=== PATIENT | female | born 1975 | race Caucasian/White ===

== ENCOUNTER 2018-10-30 11:47 | Emergency (ER) | payer OTHER, SELFPAY ==
[2018-10-30 11:48] VITALS: BP 126/68; PULSE 134; RESP 18; TEMP 36.6; O2SAT 98; BMI 31.6
--- NOTE | 2018-10-30 12:13 | ED.VISSUMM ---
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 she usually takes calcium supplementations daily she was told by her physician she could stop doing that she is following up with a new physician outpatient labs were drawn revealed the above and she was sent to the emergency department, she has no complaints of any kind no fever cough paresthesias doing well she is not known to have low vitamin D she is eating and drinking well otherwise is healthy History of Present Illness: The patient is a 43 F [] 126/68 General, no distress resting comfortably HEENT is generally unremarkable The neck is supple no adenopathy Cardiovascular, regular rate and rhythm Lungs, clear bilateral Abdomen, soft nontender Extremities, no clubbing cyanosis or edema Neurologic, awake alert answering questions appropriately moving all 4 extremities Had a long conversation with the patient we reviewed her labs her other lab studies were generally unremarkable see those reports on the chart her calcium was reported to be 7.2 spoke with pharmacy, she was treated with 1 g of calcium gluconate, I recommend that she restart her oral calcium supplementation we did draw a vitamin D level and her physicians will check that but as a prudent precautions until that level comes back, it was recommended she take a multivitamin with vitamin D as well as the calcium supplementation and have her levels repeated to return for change in symptoms she is very comfortable with this plan Physical Examination: [] Test Results: [] Emergency Department Course and Treatment: [] Treatment Plan: [] Disposition: [] Home stable Impression: [] Hypocalcemia with IV supplementation, history of same related to hypo-parathyroidism This note was generated with [employer] dictation software. It may contain incorrect words, spelling, and punctuation that were not noted in review of the chart prior to signing ED Disposition - Plan for ED Patient: Chief Complaint: Abn Labs Referrals: Kimani Arroyo MD [Primary Care Provider] -
--- NOTE | 2018-10-30 12:15 | ED.DEP ---
ED Disposition - Plan for ED Patient: Chief Complaint: Abn Labs Instructions: ED Hypocalcemia, Discharge Instructions for Hypocalcemia Referrals: Kimani Arroyo MD [Primary Care Provider] - Additional Instructions: Follow-up with all of her outpatient providers, start again taking her calcium supplements, consider taking a multivitamin with vitamin D, have your physicians check vitamin D level drawn today return for change in symptoms
--- NOTE | 2018-10-30 12:34 | ED.RN ---
pt placed on crdiac monitor. calcium hung and now infusing
[2018-10-30 12:35] VITALS: BP 107/82; PULSE 109; RESP 18; O2SAT 100
[2018-10-30 13:10] LABS: Vitamin D,25 Hydroxy 24.8 ng/mL (29.95-100.01)
[2018-10-30 14:10] VITALS: BP 110/70; BP 113/75; PULSE 110; PULSE 90; RESP 18; O2SAT 100; O2SAT 99
--- OUTSIDE RECORDS SUMMARY | 2018-12-16 16:14 | XMS RPT_ITS ---
:1975 Author Organization [place] Care Team Providers Name Role Phone CAIO ALMEIDA MD Attending Unavailable PHYSICIAN, NOT RECORDED Primary Care Unavailable CAIO ALMEIDA MD Attending Unavailable PHYSICIAN, NOT RECORDED Primary Care Unavailable REBECA BUSCH Referring Unavailable REBECA BUSCH Attending Unavailable LUIS ARROYO) Referring Unavailable LUIS ARROYO) Referring Unavailable REBECA BUSCH Attending Unavailable LUIS ARROYO) Referring Unavailable LUIS ARROYO) Referring Unavailable LUIS ARROYO) Attending Unavailable LUIS ARROYO) Referring Unavailable LUIS ARROYO) Attending Unavailable Gilberto Lainez Attending Unavailable Kimani Arroyo Primary Care Unavailable PROBLEMS PROBLEMS DATE TYPE CONDITION / CODE ATTENDING STATUS SOURCE 11/04/2018 Active Encounter for NA Active [place] [facility] Main mammogram for [place] malignant neoplasm Repository of breast / Z12.31(ICD-10) 10/29/2018 Active Pain in left foot NA Active [facility] / M79.672(ICD-10) Clinic Main [place] Repository 12/08/2013 Active Hypocalcemia / NA Active [facility] E83.51(ICD-10) Clinic Main [place] Repository 10/23/2018 Active Iron deficiency NA Active [place] anemia, Clinic Main unspecified / [place] D50.9(ICD-10) Repository 10/23/2018 Active Anemia, NA Active [place] unspecified / Clinic Main D64.9(ICD-10) [place] Repository 10/23/2018 Active Encounter for NA Active [place] general adult [facility] medical [place] examination Repository without abnormal findings / Z00.00(ICD-10) 01/31/2018 Active Generalized NA Active [place] anxiety disorder / Clinic Main F41.1(ICD-10) [place] Repository 01/31/2018 Active Insomnia, NA Active [place] unspecified / Clinic Main G47.00(ICD-10) [place] Repository 12/13/2017 Admitting Isabel and ELLE GILMAN, Active [facility] Diagnosis frequent [facility] menstruation with Repository irregular cycle / N92.1(ICD-10) PROCEDURES PROCEDURES No Procedure Records FoundRESULTS RESULTS PROGRESS Observed: 11/29/2018 Status: COMPLETED Source: [place] 9:45 AM [facility] REPOSITORY HNO ID: [id number] Author: Bernice Ledbetter Ma Service: (none) Author Type: (none) Type: Progress Notes Filed: 11/29/2018 9:46 AM Note Text: Per Dr. Busch, Jordana was provided with a night splint, size S, and instructed/educated in its application, wear, and care. All questions were answered, and patient was able to demonstrate competence with the necessary skills to utilize the above equipment. Kartik will bill insurance. Bernice Ledbetter Ma PROGRESS Observed: 11/29/2018 Status: COMPLETED Source: [place] 9:21 AM [facility] REPOSITORY HNO ID: [id number] Author: Rebeca Busch Service: (none) Author Type: Physician Type: Progress Notes Filed: 11/29/2018 9:36 AM Note Text: Follow up podiatric office visit for: Chief Complaint: This 43 year old who presents for follow up:left heel pain Patient continues with stretching as much as she can remember. She is using inserts but has not notice much improvement. Patient has not been taking any nsaids for the pain. Patient states the pain is mostly in the morning after rest or in evening after she has been sitting. She states the pain is not as bad during the day after she gets moving. She states the right ankle along the lateral aspect is starting to hurt and she does not know if this is due to compensation. Patient states the pain is 8/10. PAIN EVALUATION 11/29/2018 Pain Score: 8 Pain Location: Foot-Left Description: Sharp Duration Amount of Time: 7 Duration Units: Months Frequency: Intermittent Intervention: - stretches AND power stops No results found for: HBA1C PCP: Luis Arroyo MD PAST MEDICAL HISTORY Diagnosis Date - Anxiety - Breast pain 04/04/12 - Heel spur, left - hyperthyroidism s/p thryoidectomy - Hypothyroidism (acquired) - Insomnia, unspecified - Obesity (BMI 30-39.9) - Other abnormal glucose - Plantar fasciitis Current Outpatient Prescriptions: levothyroxine (LEVOXYL) 125 mcg tablet Take 1 tablet by mouth once daily. COMPOUNDED PRESCRIPTION B/l gel heel splintsDx: 1. Heel pain No current facility-administered medications for this visit. ALLERGIES No Known Allergies PAST SURGICAL HISTORY Procedure Laterality Date - BX BREAST PERC NEED W/GUID 04/12/12 Right 6 oclock. 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 - PAST SURGICAL HISTORY OF 2004 Ankle Surgery - PAST SURGICAL HISTORY OF 2016 endometrial biopsy-normal - THYROIDECTOMY 2008 [facility] Physical Exam: Constitutional: Pt is a well developed 43 year old female who is alert, oriented, cooperative and in no apparent distress. OBJECTIVE: NVSI unchanged from previous visit. Dermatological: Nails 1-5 b/l are normal. Webspaces clean and dry 1-4 b/l. Skin appears well hydrated and supple. good color, texture, turgor. No open lesions present. No callosities present. Musculoskeletal/Orthopaedic: Patient has pain to palpation of left medial calcaneal tubercle - tinel to left foot Plantarflexion, dorsiflexion, inversion and eversion is 5/5 Mild pain is present to right lateral ankle. Pain is not too severe. ASSESSMENT: (M72.2) Plantar fasciitis of left foot (primary encounter diagnosis) PLAN: 1. History and physical examination completed today. 2. Discussed ongoing left heel pain. She is doing stretching, inserts. She still has pain. Recommend she increase her amount of stretching/day. 3. Will dispense night splint for her to wear at night 4. Discussed physical therapy today. She declined this. 5. Discussed steroid injection. She elected to receive. Patient elected to proceed with an injection to the heel today. The risks, benefits, potential complications, personnel present, and alternatives to this were discsussed. Pt elected to proceed. all questions were answered. no guarantees were given. A timeout was performed. patient properly identified. procedure site marked. Under aseptic technique an injection was performed to the heel using a mixture of ? cc of 0.5 % Marcaine plain, ? of kenalog and ? cc of dexamethazone 6. Discussed right ankle pain. Suspect this is more related to possible compensation. She does have history of arthroscopic ankle debridement. Informed patient that this ankle pain is possible compensation but it could be due to recurrent ankle pain. If pain persists, can always discuss options for ankle. Patient thinks is due to compensation 7. F/u in 4 weeks Rebeca Busch DPM CNOV Observed: 11/29/2018 Status: COMPLETED Source: [place] 9:10 AM [facility] REPOSITORY Office Visit (PODIWS) JORDANA MEDINA ([id number]) 1975 F Date Time Provider Department 11/29/18 9:10 AM REBECA BUSCH During your visit today, we recorded the following information about you: Carie Soto RN 11/29/2018 9:36 AM Signed AMB ROOMING INTAKE FLOWSHEET DATA Risk Screening Do you have concerns about personal safety or safety in the home?: No Pain Pain Score: 8/10 Pain Location: Foot-Left Description: Sharp Duration Amount of Time: 7 Duration Units: Months Frequency: Intermittent Intervention: (stretches AND power stops) 1 month follow up for left plantar fasciitis. Doing stretches AND wears the power stops while at work. Does not feel that this has helped. Painful with weight bearing, described as a sharp pain. Carie Busch DPM 11/29/2018 9:36 AM Signed Follow up podiatric office visit for: Chief Complaint: This 43 year old who presents for follow up:left heel pain Patient continues with stretching as much as she can remember. She is using inserts but has not notice much improvement. Patient has not been taking any nsaids for the pain. Patient states the pain is mostly in the morning after rest or in evening after she has been sitting. She states the pain is not as bad during the day after she gets moving. She states the right ankle along the lateral aspect is starting to hurt and she does not know if this is due to compensation. Patient states the pain is 8/10. PAIN EVALUATION 11/29/2018 Pain Score: 8 Pain Location: Foot-Left Description: Sharp Duration Amount of Time: 7 Duration Units: Months Frequency: Intermittent Intervention: - stretches AND power stops No results found for: HBA1C PCP: Luis Arroyo MD PAST MEDICAL HISTORY Diagnosis Date - Anxiety - Breast pain 04/04/12 - Heel spur, left - hyperthyroidism s/p thryoidectomy - Hypothyroidism (acquired) - Insomnia, unspecified - Obesity (BMI 30-39.9) - Other abnormal glucose - Plantar fasciitis Current Outpatient Prescriptions: levothyroxine (LEVOXYL) 125 mcg tablet Take 1 tablet by mouth once daily. COMPOUNDED PRESCRIPTION B/l gel heel splintsDx: 1. Heel pain No current facility-administered medications for this visit. ALLERGIES No Known Allergies PAST SURGICAL HISTORY Procedure Laterality Date - BX BREAST PERC NEED W/GUID 04/12/12 Right 6 oclock. 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 - PAST SURGICAL HISTORY OF 2004 Ankle Surgery - PAST SURGICAL HISTORY OF 2016 endometrial biopsy-normal - THYROIDECTOMY 2008 [facility] Physical Exam: Constitutional: Pt is a well developed 43 year old female who is alert, oriented, cooperative and in no apparent distress. OBJECTIVE: NVSI unchanged from previous visit. Dermatological: Nails 1-5 b/l are normal. Webspaces clean and dry 1-4 b/l. Skin appears well hydrated and supple. good color, texture, turgor. No open lesions present. No callosities present. Musculoskeletal/Orthopaedic: Patient has pain to palpation of left medial calcaneal tubercle - tinel to left foot Plantarflexion, dorsiflexion, inversion and eversion is 5/5 Mild pain is present to right lateral ankle. Pain is not too severe. ASSESSMENT: (M72.2) Plantar fasciitis of left foot (primary encounter diagnosis) PLAN: 1. History and physical examination completed today. 2. Discussed ongoing left heel pain. She is doing stretching, inserts. She still has pain. Recommend she increase her amount of stretching/day. 3. Will dispense night splint for her to wear at night 4. Discussed physical therapy today. She declined this. 5. Discussed steroid injection. She elected to receive. Patient elected to proceed with an injection to the heel today. The risks, benefits, potential complications, personnel present, and alternatives to this were discsussed. Pt elected to proceed. all questions were answered. no guarantees were given. A timeout was performed. patient properly identified. procedure site marked. Under aseptic technique an injection was performed to the heel using a mixture of ? cc of 0.5 % Marcaine plain, ? of kenalog and ? cc of dexamethazone 6. Discussed right ankle pain. Suspect this is more related to possible compensation. She does have history of arthroscopic ankle debridement. Informed patient that this ankle pain is possible compensation but it could be due to recurrent ankle pain. If pain persists, can always discuss options for ankle. Patient thinks is due to compensation 7. F/u in 4 weeks TANYA Dutton DPM 11/29/2018 9:31 AM Signed STEROID INJECTION You have been injected with a corticosteroid and local anesthesia today. This should provide relief of symptoms for the next 8 hours or so. After this time frame you will likely experience an increase in pain symptoms again until the effects of the steroid start to work, which should occur within 24-48 hours. Approximately 2% of individuals may experience a post injection flare or severe worsening of symptoms following injection. If this occurs ice the area and take Tylenol or Aleve for pain. In some very rare instances skin depigmentation and joint infection may occur. Joint infection is a concern if you experience any of the following: ? pain for more than 48 hours after the injection ? pain develops more than 2 days after the injection ? the area becomes red, hot or swollen ? you develop a fever following the injection Corticosteroid injections can also rarely interfere with the healing process and weaken tendons, sometimes causing tendons to rupture. Repeated injections of steroids can also damage joint cartilage. For these reasons, there are limits to how many times and how frequently corticosteroid injections can be used in the same area. If anything seems unusual or out of the ordinary please contact our office as soon as possible for further instruction. Bernice Ledbetter Ma 11/29/2018 9:[address] Busch, Jordana was provided with a night splint, size S, and instructed/educated in its application, wear, and care. All questions were answered, and patient was able to demonstrate competence with the necessary skills to utilize the above equipment. Kartik will bill insurance. Bernice Ledbetter Ma Referring Provider: LUIS ARROYO) [[id number]] Allergies As of Date: 11/29/2018 (No Known Allergies) Date Reviewed: 11/29/2018 Reviewed by: Carie Soto RN - Fully Assessed Reason for Visit: Established Patient [175] Cmt: 1 month follow up left plantar fascitis Primary Visit Diagnosis:Plantar fasciitis of left foot [M72.2] Order(s):[] bupivacaine (PF) 0.5 % (5 mg/mL) 2.5 mg injectionDisp: Rfl: [] dexamethasone sodium phosphate 2 mg injection (DECADRON)Disp: Rfl: [] triamcinolone acetonide 5 mg injection (KENALOG 10)Disp: Rfl: Prescriptions as of 11/29/2018 Sig: LEVOTHYROXINE 125 MCG TABLET Take 1 tablet by mouth once d* COMPOUNDED PRESCRIPTION B/l gel heel splints Dx: 1.* Problem List As Of Date 11/29/2018 Noted Resolved ABNORMAL GLUCOSE NEC [R73.09] HYPOTHYROIDISM NOS [E03.9] INVALID FOR*03/04/2009 INSOMNIA NOS [G47.00] Postoperative Hypothyroidism [E89.0] INVALID FOR* PALPITATIONS [R00.2] INVALID FOR* GOITER UNSPECIFIED [E04.9] INVALID FOR* Hypopotassemia [E87.6] INVALID FOR* Abnormal mammogram, unspecified [R92.8] INVALID FOR* Elevated cholesterol [E78.00] INVALID FOR* Hypocalcemia [E83.51] INVALID FOR* Anxiety [F41.9] Other instructions from your clinician: STEROID INJECTION You have been injected with a corticosteroid and local anesthesia today. This should provide relief of symptoms for the next 8 hours or so. After this time frame you will likely experience an increase in pain symptoms again until the effects of the steroid start to work, which should occur within 24-48 hours. Approximately 2% of individuals may experience a post injection flare or severe worsening of symptoms following injection. If this occurs ice the area and take Tylenol or Aleve for pain. In some very rare instances skin depigmentation and joint infection may occur. Joint infection is a concern if you experience any of the following: ? pain for more than 48 hours after the injection ? pain develops more than 2 days after the injection ? the area becomes red, hot or swollen ? you develop a fever following the injection Corticosteroid injections can also rarely interfere with the healing process and weaken tendons, sometimes causing tendons to rupture. Repeated injections of steroids can also damage joint cartilage. For these reasons, there are limits to how many times and how frequently corticosteroid injections can be used in the same area. If anything seems unusual or out of the ordinary please contact our office as soon as possible for further instruction. Prescriptions ordered this encounter Disp Refills Start End BUPIVACAINE (PF) 0.5 % (5 MG/ML) INJ* 11/29/2018 11/29/2018 Route: IAtc DEXAMETHASONE 4 MG/ML INJECTION SOLU* 11/29/2018 11/29/2018 Route: IAtc TRIAMCINOLONE ACETONIDE 10 MG/ML TONA* 11/29/2018 11/29/2018 Route: IAtc Disposition: Return in about 4 weeks (around 12/27/2018) for Heel spur. Follow-up and Disposition History Recorded Encounter Status:Closed by REBECA BUSCH DPM on 11/29/18 PROGRESS Observed: 11/29/2018 Status: COMPLETED Source: [place] 9:06 AM [facility] REPOSITORY HNO ID: [id number] Author: Carie Soto RN Service: (none) Author Type: (none) Type: Progress Notes Filed: 11/29/2018 9:36 AM Note Text: AMB ROOMING INTAKE FLOWSHEET DATA Risk Screening Do you have concerns about personal safety or safety in the home?: No Pain Pain Score: 8/10 Pain Location: Foot-Left Description: Sharp Duration Amount of Time: 7 Duration Units: Months Frequency: Intermittent Intervention: (stretches AND power stops) 1 month follow up for left plantar fasciitis. Doing stretches AND wears the power stops while at work. Does not feel that this has helped. Painful with weight bearing, described as a sharp pain. Carie Soto RN CNCO Observed: 11/04/2018 Status: COMPLETED Source: [place] 5:00 PM [facility] REPOSITORY HNO ID: [id number] Author: Mammography Coordinator Service: (none) Author Type: Physician Type: Letter Filed: 11/05/2018 11:33 PM Note Text: November 04, 2018 PID: [id number] Jordana Medina [address] [place] [address] Dear Ms. Medina, We are pleased to inform you that the results of your recent breast imaging exam on 11/04/2018 are normal. Your mammogram demonstrates that you have dense breast tissue, which could hide abnormalities. Dense breast tissue, in and of itself, is a relatively common condition. Therefore, this information is not provided to cause undue concern; rather, it is to raise your awareness and promote discussion with your health care provider regarding the presence of dense breast tissue in addition to other risk factors. Early detection of cancer is very important. We also understand recommendations regarding breast cancer screening are controversial. Please discuss with your primary care provider which strategy is best for you and whether a mammogram is right for you. Your imaging studies and report will be kept on file at [facility] as part of your permanent medical record and are available for your continuing care. Thank you for allowing us to help in meeting your health care needs. Sincerely, Dr. Schwartz Interpreting Radiologist [facility] (Normal over 40) [facility] SCREENING Observed: 11/04/2018 Status: F Source: [place] 11:54 AM [facility] REPOSITORY * * *Final Report* * * DATE OF EXAM: Nov 04 2018 11:54AM [id number] - [facility] SCREENING / PROCEDURE REASON: Screening mammogram, encounter for * * * * Physician Interpretation * * * * RESULT: #[id number] - [facility] SCREENING BILATERAL DIGITAL SCREENING MAMMOGRAM WITH CAD: 11/04/2018 HISTORY: Screening Mammogram, Encounter For /SEE TECH NOTE /priors available for comparison. RESULT: TECHNIQUE: The study was acquired using full field digital technology and interpreted from soft copy. Current study was also evaluated with a Computer Aided Detection (CAD). Comparison is made to exams dated: 04/27/2015 mammogram and 09/19/2012 mammogram - [facility]. The tissue of both breasts is heterogeneously dense. This may lower the sensitivity of mammography. There is a stable benign mass in the right breast. There also are biopsy clips in the right breast. No significant masses, calcifications, or other findings are seen in either breast. There has been no significant interval change. IMPRESSION: BENIGN FINDING There is no mammographic evidence of malignancy. A 1 year screening mammogram is recommended. Ruth priest/juan a:11/04/2018 17:00:47 Farm Machine Operator(s): Clover Allen RT(R)(M), [facility] letter sent: Normal over 40 Mammogram BI-RADS: 2 Benign finding Multiple national specialty organizations have released breast cancer screening guidelines for women at average risk for developing breast cancer - guidelines that are based on both evidence and opinion, yet differ on when to start and how often to screen for breast cancer. With representation from Breast Imaging, Internal Medicine, Women's Health, Family Medicine, and Medical/Surgical Oncology, the [facility] has carefully reviewed the data and reached the following consensus: 1) All women should engage in shared decision-making with their providers to decide when to start and how often to screen; 2) All women should have the opportunity to start screening mammography at age 40; 3) For women ages 45-55, we recommend annual screening mammograms; 4) For women ages 55 and over, we support both the transition from an annual to a biennial interval if this aligns more with patient's values and preferences, or continuation with annual screening; 5) All women should discuss with their providers when to stop screening mammograms. Account Administrator: Juan A Transcribe Date/Time: Nov 04 2018 11:30A Dictated by: RUTH SCHWARTZ MD This examination was interpreted and the report reviewed and electronically signed by: RUTH SCHWARTZ MD on Nov 04 2018 5:00PM EST [id number] PROGRESS Observed: 11/04/2018 Status: COMPLETED Source: [place] 11:30 AM [facility] REPOSITORY HNO ID: [id number] Author: Zhanna Allen Rt Service: (none) Author Type: (none) Type: Progress Notes Filed: 11/04/2018 11:58 AM Note Text: Radiology Service Progress Note PATIENT NAME: Jordana Medina DATE OF SERVICE: November 04, 2018 TIME: 11:30 AM PATIENT IDENTITY VERIFICATION COMPLETED USING TWO (2) METHODS: Patient confirmed name verbally and Date of . PATIENT GENDER DATA: Female. status: : No status: NO. PATIENT RELEVANT IMPLANT DATA REVIEWED: Not Applicable RADIOLOGY DEPARTMENT: Women[facility] esmer scr mammogram PERIPHERAL IV DATA: Not applicable SIGNED BY: Zhanna Strong November 04, 2018 11:30 AM EMERGENCY DEPARTMENT Observed: 10/30/2018 Status: F Source: [place] SUMMARY 5:10 PM [facility] REPOSITORY [facility] Medical Records Department [address] [place] [address] Emergency Department Summary 10/30/18 1213 MR#: [id number] Acct: [id number] Name: JORDANA MEDINA Rep #: [id number] : 1975 43 From: Gilberto Lainez MD PCP: Kimani Arroyo MD Status: DEP ER 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 she usually takes calcium supplementations daily she was told by her physician she could stop doing that she is following up with a new physician outpatient labs were drawn revealed the above and she was sent to the emergency department, she has no complaints of any kind no fever cough paresthesias doing well she is not known to have low vitamin D she is eating and drinking well otherwise is healthy History of Present Illness: The patient is a 43 F [] 126/68 General, no distress resting comfortably HEENT is generally unremarkable The neck is supple no adenopathy Cardiovascular, regular rate and rhythm Lungs, clear bilateral Abdomen, soft nontender Extremities, no clubbing cyanosis or edema Neurologic, awake alert answering questions appropriately moving all 4 extremities Had a long conversation with the patient we reviewed her labs her other lab studies were generally unremarkable see those reports on the chart her calcium was reported to be 7.2 spoke with pharmacy, she was treated with 1 g of calcium gluconate, I recommend that she restart her oral calcium supplementation we did draw a vitamin D level and her physicians will check that but as a prudent precautions until that level comes back, it was recommended she take a multivitamin with vitamin D as well as the calcium supplementation and have her levels repeated to return for change in symptoms she is very comfortable with this plan Physical Examination: [] Test Results: [] Emergency Department Course and Treatment: [] Treatment Plan: [] Disposition: [] Home stable Impression: [] Hypocalcemia with IV supplementation, history of same related to hypo-parathyroidism This note was generated with i[employer] dictation software. It may contain incorrect words, spelling, and punctuation that were not noted in review of the chart prior to signing ED Disposition - Plan for ED Patient: Chief Complaint: Abn Labs Referrals: Kimani Arroyo MD [Primary Care Provider] - What to do if you have Problems For any increased pain, shortness of breath, bleeding, nausea or vomiting, chest pain, or any unexpected problems, contact your Primary Care Provider. Call [facility] ([phone]) or report to the closest Emergency Room. Call 911 if necessary. 10/30/18 1710 <Electronically signed by Gilberto Lainez MD> Date Gilberto Lainez MD Cosigner Signature (If Indicated): Date CC: Kimani Arroyo MD DISCHARGE INSTRUCTION Observed: 10/30/2018 Status: F Source: [place] 12:16 PM [facility] REPOSITORY [facility] Medical Records Department [address] [place] [address] Discharge Instruction 10/30/18 1215 MR#: [id number] Acct: [id number] Name: JORDANA MEDINA Rep #: [id number] : 1975 43 From: Gilberto Lainez MD PCP: Kimani Arroyo MD Status: PRE ER ED Disposition - Plan for ED Patient: Chief Complaint: Abn Labs Instructions: ED Hypocalcemia, Discharge Instructions for Hypocalcemia Referrals: Kimani Arroyo MD [Primary Care Provider] - Additional Instructions: Follow-up with all of her outpatient providers, start again taking her calcium supplements, consider taking a multivitamin with vitamin D, have your physicians check vitamin D level drawn today return for change in symptoms What to do if you have Problems For any increased pain, shortness of breath, bleeding, nausea or vomiting, chest pain, or any unexpected problems, contact your Primary Care Provider. Call [facility] ([phone]) or report to the closest Emergency Room. Call 911 if necessary. 10/30/18 1216 <Electronically signed by Gilberto Lainez MD> Date Gilberto Lainez MD Cosigner Signature (If Indicated): Date CC: No Primary Care Physician; Kimani Arroyo MD VITAMIN D,25 HYDROXY Collected: 10/30/2018 Status: F Source: [place] 12:05 PM [facility] REPOSITORY TYPE CODE TESTS RESULT OUT OF REFERENCE UNITS RANGE LAB L506.1000 29.95-100.01 ng/mL Low Vitamin D 24.8 25-OH Result Comment: Vitamin D 25(OH) Status Range Deficiency <20 ng/mL (50nmol/L) Insuffciency 20 - 30 ng/mL (50 - 75 nmol/L) Sufficiency 30 - 100 ng/mL (75 - 250 nmol/L) Toxicity >100 ng/mL (>250 nmol/L) Performed By: #### L506.1000 #### [facility] [address] [place], [address] CNPN Observed: 10/30/2018 Status: COMPLETED Source: [place] 12:00 AM [facility] REPOSITORY Telephone (FAMPWS) JORDANA [id number]) 1975 F Date Time Provider Department 10/30/18 LUIS ARROYO) FAMWS During your visit today, we recorded the following information about you: Braulio Wickjass Jorgensen 10/30/2018 10:52 AM Signed ----- Message from Luis Sumner) Cruz sent at 10/30/2018 10:50 AM EST ----- Labs confirm hypoparathryoidism with low PTH, low calcium, low vitamin D, low ionized calcium and elevated phosphorus level. Calcium level corrected for albumin is 6.5 which is severely low. Findings likely caused by previous thyroid surgery. Recommend she be seen in the ED today as she will need calcium supplementation and close follow up with endocrinology as she can have symptoms of seizures, heart failure, and laryngospasm with calcium levels this low. Haley Covarrubias LPN, FRAME TENDER 10/30/2018 10:55 AM Signed Sent message via my chart. Braulio Fisher Ma 10/30/2018 11:18 AM Signed TC to patient - notified and verbalized understanding. Patient will be going to [facility] ED. Records faxed. Braulio Fisher Ma Allergies As of Date: 10/30/2018 (No Known Allergies) Date Reviewed: 10/29/2018 Reviewed by: Susan Atwood LPN - Fully Assessed Reason for Visit: Results [95] Prescriptions as of 10/30/2018 Sig: COMPOUNDED PRESCRIPTION B/l gel heel splints Dx: 1.* LEVOTHYROXINE 125 MCG TABLET Take 1 tablet by mouth once d* SUVOREXANT 10 MG TABLET Take 1 tablet by mouth daily * Problem List As Of Date 10/30/2018 Noted Resolved ABNORMAL GLUCOSE NEC [R73.09] HYPOTHYROIDISM NOS [E03.9] INVALID FOR*03/04/2009 INSOMNIA NOS [G47.00] Postoperative Hypothyroidism [E89.0] INVALID FOR* PALPITATIONS [R00.2] INVALID FOR* GOITER UNSPECIFIED [E04.9] INVALID FOR* Hypopotassemia [E87.6] INVALID FOR* Abnormal mammogram, unspecified [R92.8] INVALID FOR* Elevated cholesterol [E78.00] INVALID FOR* Hypocalcemia [E83.51] INVALID FOR* Anxiety [F41.9] Encounter Status:Closed by HALEY COVARRUBIAS LPN on 10/30/18 PROGRESS Observed: 10/29/2018 Status: COMPLETED Source: [place] 3:17 PM [facility] REPOSITORY HNO ID: [id number] Author: Candida Santos RN Service: (none) Author Type: (none) Type: Progress Notes Filed: 10/29/2018 3:24 PM Note Text: Per Jordana Barrett provided with a pair of Powerstep Original Full Length Inserts, size 8 -8 1/2, and instructed/educated in its application, wear, and care. All questions were answered, and patient was able to demonstrate competence with the necessary skills to utilize the above equipment. Candida Santos RN CNOV Observed: 10/29/2018 Status: COMPLETED Source: [place] 3:10 PM [facility] REPOSITORY Office Visit (PODIWS) JORDANA MEDINA ([id number]) 1975 F Date Time Provider Department 10/29/18 3:10 PM REBECA BUSCH During your visit today, we recorded the following information about you: Rebeca Busch DPM 10/29/2018 3:24 PM Signed Consultation requested by Dr. Arroyo for an opinion regarding left heel pain. My final recommendations will be communicated back to the requesting physician by way of shared Medical record or letter to requesting physician via US mail. Initial Podiatric Office Visit: Chief Complaint: This 43 year old female who presents with chief complaint:left heel pain HPI Patient presents to clinic for evaluation of left heel pain Patient complains of pain to the plantar aspect of left heel for duration of 9 months She states the pain is mostly following periods of rest. She states the pain is not as bad while walking but she has had a chance to sit down for awhile and then Gets up to walk, she has pain. She states the pain is 6/10. Patient has tried icing and inserts. Patient states the icing and inserts do help. PAIN EVALUATION 10/29/2018 Pain Score: 6 Pain Location: Heel-Left Description: Shooting;Sharp Duration Amount of Time: 9 Duration Units: Months Frequency: Continuous No results found for: HBA1C PCP: Luis Arroyo MD PAST MEDICAL HISTORY Diagnosis Date - Anxiety - Breast pain 04/04/12 - Heel spur, left - hyperthyroidism s/p thryoidectomy - Hypothyroidism (acquired) - Insomnia, unspecified - Obesity (BMI 30-39.9) - Other abnormal glucose Current Outpatient Prescriptions: COMPOUNDED PRESCRIPTION B/l gel heel splintsDx: 1. Heel pain levothyroxine (LEVOXYL) 125 mcg tablet Take 1 tablet by mouth once daily. ramelteon (ROZEREM) 8 mg tablet Take 1 tablet by mouth daily at bedtime. No current facility-administered medications for this visit. ALLERGIES No Known Allergies PAST SURGICAL HISTORY Procedure Laterality Date - BX BREAST PERC NEED W/GUID 04/12/12 Right 6 oclock. 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 - PAST SURGICAL HISTORY OF 2004 Ankle Surgery - PAST SURGICAL HISTORY OF 2016 endometrial biopsy-normal - THYROIDECTOMY 2008 [facility] FAMILY HISTORY Problem Relation Age of Onset - Diabetes Mother - Lipids Father - Diabetes Father - Carotid Disease Father - No Known Problems Sister - No Known Problems Maternal Grandmother - No Known Problems Maternal Grandfather - Heart Paternal Grandmother pacer - Alzheimer's Disease Paternal Grandmother - Colon Cancer Paternal Grandfather 70 - No Known Problems Son - No Known Problems Son - Heart Paternal Uncle 50 pacer - Breast Cancer Paternal Aunt 30 30-40 Social History Marital status: Spouse name: suresh Years of education: Number of children: 2 Social History Main Topics Smoking status: Never Smoker Smokeless tobacco: Never Used Alcohol use: Yes 3.0 oz/week Glasses of Wine (5oz): 2 per week Comment: Social Drug use: No Sexual activity: Yes Partners with: Male control/protection: Vasectomy Social History Narrative , 2 boys 5,8 pigs feet cleaner Lives in [facility] REVIEW OF SYSTEMS GENERAL: Negative for Malaise, significant weight loss, fever RESPIRATORY: Negative for cough, wheezing and shortness of breath CARDIOVASCULAR: Negative for chest pain, leg swelling and palpitations GI: Negative for abdominal discomfort, blood in stools or black stools and change in bowel habits : Negative for dysuria, frequency and incontinence MUSCULOSKELETAL: Positive for left heel pain SKIN: Negative for lesions, rash, and itching. HEMATOLOGY/LYMPHOLOGY Negative for prolonged bleeding, bruising easily, and swollen nodes. ENDOCRINE: Negative for cold or heat intolerance, polyuria, polydipsia and goiter. NEURO: negative Physical Exam: Constitutional: Pt is a well developed 43 year old female who is alert, oriented and cooperative Eyes: Following during examination. No redness or drainage. Respiratory: RR normal and nonlabored. Even breathing. No evidence of distress or shortness of breath. Psychology: Patient is engaged during conversation. Normal affect and mood. Does not appear depressed or anxious during encounter. Vascular: Dorsalis pedis and posterior tibial pulses palpable as b/l Capillary Fill time < 5 seconds to digits 1-5 b/l Skin temperature warm to warm proximal to distal b/l Hair growth present to digits Neurological: intact light touch/epicritic sensation - tinel b/l intact protective sensation no significant neurological deficits Dermatological: Nails 1-5 b/l appear normal. Webspaces clean and dry 1-4 b/l. Skin appears well hydrated and supple. good color, texture, turgor. No open lesions present. No callosities present. Musculoskeletal/Orthopaedic: Patient has pain to palpation of left medial calcaneal tubercle Foot type is neutral structurally AJ ROM is decreased with knee extended and flexed 1st MPJ is full when loaded and no pain or crepitus are noted with ROM. MTJ, STJ are full and free of pain and crepitus. +5/5 muscle strength dorsiflexion, plantarflexion, inversion, eversion b/l Radiographs: 3 views left foot ordered October 29, 2018: I have personally reviewed and interpreted these XR myself: No acute fracture. There is plantar heel spur left foot ASSESSMENT: (M72.2) Plantar fasciitis of left foot (primary encounter diagnosis) PLAN: 1. Initial Office Visit - A thorough review of the patient's PMH and Podiatric physical exam was completed. 2. Patient advised to perform stretching excercises, icing, and to make appropriate shoe gear changes to include wearing athletic- type shoes with supportive insoles. No barefoot walking. Patient also given written instructions on how to correctly perform the stretching of the achilles tendon/calf stretches, and the heel spur/plantar fasciitis regimen. 3. Patient advised to seek wide, deep toe box, accomodative, comfortable, lace-up, athletic/walking type footwear that includes motion control characteristics for support and cushion that need to be worn at all times when weight-bearing. Shoes should be tested for torsional stability as well as proper bending at the toebox rather than at the midfoot. Good quality shoes such as, but not limited to, New Balance or Asics are examples of more proper foot gear. 4. Patient recommended to get powerstep insoles for proper support of the arch in order to alleviate the tension and stress on the plantar fascia associated with normal daily walking. Patient advised that these modalities used in conjunction with stretching and icing are able to alleviate most symptoms from this condition. 5. RTC in 6 weeks for f/u, discussed next step of custom FO, night splint or injection if symptoms do not markedly improve TANYA Dutton DPM 10/29/2018 3:12 PM Signed What is Plantar Fasciitis? Plantar fasciitis is the most common cause of heel pain. The pain is caused by inflammation of the plantar fascia. If you strain your plantar fascia, it becomes weak, swollen and irritated (inflamed). The resulting pain may be isolated in the heel or may appear at different points on the bottom of the foot, from time to time; it may occur in one foot or both. Some think that plantar fasciitis pain is caused by irritation of nerves from tissue swelling or inflammation, but it is debatable. Plantar fasciitis is common in middle-aged people; it also occurs in younger people who are on their feet a lot, such as athletes or soldiers. The plantar fascia is a strong band of connective tissue that extends from the base of the toes, along the bottom of the foot, to the bottom of the heel (calcaneous bone); it acts like a bowstring to maintain the arch of the foot. What are heel spurs? The inflammatory reaction of the heel bone may produce spike- like projections of new bone, called heel spurs. The spurs sometimes show on X-rays. They neither cause the initial pain nor do they cause the initial problem. However, later, having to walk on spurs may cause sharp pain. What causes plantar fasciitis? Plantar fasciitis is caused by straining the ligament that supports your arch. Repeated strain can cause tiny tears in the ligament. These lead to pain and swelling. During walking, the plantar fascia experiences tension up to twice the body weight with each step. While this is normal, those who spend much time on their feet, such as nurses, informal waiter/waitress/waiters, and mail carriers, often experience plantar fasciitis. Athletes involved in tennis or other racquet sports, race walking, jogging or running also show a higher incidence of plantar fasciitis than do those participating in other activities. Thus, it's clear that plantar fasciitis is predominantly an overuse injury. In fact, any activity that results in prolonged tension and stress on the plantar fascia may cause plantar fasciitis. It is possible that changes in footwear may play a role in causing plantar fasciitis, no matter what activity is occurring. Those who are overweight are prone to plantar fasciitis. This is true even for sedentary people who get little physical activity. Abnormalities of the foot and ankle joints may predispose some individuals to development of plantar fasciitis (specifically, over pronation of the subtalar joint). Contributing Factors * Flat feet * Toe running, hill running * Sudden weight increase * High-arched, rigid feet * Soft terrain, e.g. running on sand * Obesity * Pronated feet (rolled inward) * Sudden increase in activity * Family tendency * Poor shoe support * Worn out or poorly fitted shoes * Increasing age * Walking, standing or running for long periods of time, especially on hard surfaces. How is the Injury Treated? Rest Your Feet: Limit, or if possible, stop activities that are causing your heel pain. Try to avoid running or walking on hard surfaces, such as concrete. Use pain as your guide. If your foot is too painful, rest it. Ice: Ice the sore area for 30 to 60 minutes, several times a day, to reduce inflammation and relieve pain. Apply a plastic bag of crushed ice (or a bag of frozen peas) over a towel. Ice the sore area for 15 minutes after activity/exercise. Application of heat is not generally recommended, as heat expands the bone and connective tissue, perhaps exerting greater pressure on nerves and thereby increasing pain. If heat is used, follow it with ice. Medication: If your condition developed recently, anti-inflammatory/analgesic medication, combined with heel pads (see below) may be all that is necessary to relieve pain and to reduce inflammation. If no pain relief has occurred after 2-3 weeks, however, your doctor may inject either cortisone or local anesthetic directly into the tender area. Exercises: Do simple exercises, such as calf stretches and towel stretches (see below) several times a day, especially when you first get up in the morning. These can help your ligament become more flexible and strengthen the muscles that support your arch. Shoes: Poorly fitting shoes can cause plantar fasciitis. The best type of shoe to wear is a good walking or running shoe with good shock absorption and excellent arch support. You should choose the one that fits the best. [place] with your athletic shoes to find a pair that is comfortable and causes fewer symptoms. Put your shoes on as soon as you get out of bed; going barefoot or wearing slippers may make your pain worse. Good brands include (but are not limited to): New Balance, Asics, Saucony, SAS and Merrel?s. Taping: Your doctor may tape your foot to maintain the arch. This takes some of the tension off the plantar fascia. Weight Loss: If your weight is putting extra stress on your feet, your doctor may encourage you to try a weight-loss program. Orthotics: An orthotic insole is a molded piece of rubber, plastic, or other material that you insert into your shoe. It corrects the alignment of your foot and cushions your foot from excessive pounding. These may be prescription or non-prescription. Prescription orthotics are custom-fitted and may fit better and control pain better, but are very expensive. Night Splints: A night splint holds the foot with the toes pointed up and the ankle at a 90-degree angle. This position applies a constant, gentle stretch to the plantar fascia. Corticosteroid Shots: Steroids may be injected into the tender area to reduce inflammation. REHAB Exercises to stretch the plantar fascia, the calf muscles, and the Achilles tendon. Tightness of the muscles of the calves may contribute to plantar fasciitis, so stretching the calf muscles is important to rehabilitation, as is stretching of the plantar fascia itself. Plantar fascial stretches Assisted Dorsiflexion/Plantar Fascia Stretch: Sit on the floor or ground, barefoot, with both legs outstretched. Use a towel or elastic band and wrap it around the ball (and not the toes) of the affected foot. Use the towel or elastic band to provide resistance to upward movement of the forefoot. Pull foot upward (toward your body) with the help of the elastic band or towel, and then return to the starting position. Ten repetitions are recommended. Perform the sequence at least three times a day. Alternate Plantar Fascia Stretch: Sit upright in a chair, barefoot. Place the ankle of the affected foot on your opposite knee. Using the same hand as the affected foot, reach across and grab the toes. Flex the ankle toward and pull the toes toward the [place] cast[place]. To test the stretch, place the thumb of your hand on the bottom of the foot. You should be able to feel the cord- like plantar fascia, running the length of the foot. Hold the stretch for a count of 10, then relax. Repeat 10 times. Do the sequence at least three times a day. Achilles/Calf Stretches Strengthening the muscles of the calves may contribute to successful rehabilitation of plantar fasciitis, as well as prevent reoccurrence. The exercises below will help strengthen the calf muscles. Calf and Achilles Tendon Stretch (Gastrocnemius Stretch): Face a wall, standing an arm's length away. Place one foot back. Place both hands on the wall. Bend the elbows and knee of your forward leg, keeping the heel of the backward foot on the floor and keeping your body straight (aligned), until your forehead nearly touches the wall, or until significant stretch is felt in the muscles of the calf of the backward leg. Hold this position for 10 to 15 seconds. Extend elbows (straighten your arms and stand upright again) and maintain this position for 10 seconds. Repeat this cycle 15 to 20 times. Switch legs and repeat the exercise. Candida Santos RN 10/29/2018 3:24 PM Signed Per Jordana Barrett provided with a pair of Powerstep Original Full Length Inserts, size 8 -8 1/2, and instructed/educated in its application, wear, and care. All questions were answered, and patient was able to demonstrate competence with the necessary skills to utilize the above equipment. Candida Santos RN Referring Provider: LUIS ARROYO) [[id number]] Allergies As of Date: 10/29/2018 (No Known Allergies) Date Reviewed: 10/29/2018 Reviewed by: Susan Atwood LPN - Fully Assessed Reason for Visit: New Patient [172] Cmt: left heel spur Primary Visit Diagnosis:Plantar fasciitis of left foot [M72.2] Prescriptions as of 10/29/2018 Sig: COMPOUNDED PRESCRIPTION B/l gel heel splints Dx: 1.* LEVOTHYROXINE 125 MCG TABLET Take 1 tablet by mouth once d* RAMELTEON 8 MG TABLET Take 1 tablet by mouth daily * Problem List As Of Date 10/29/2018 Noted Resolved ABNORMAL GLUCOSE NEC [R73.09] HYPOTHYROIDISM NOS [E03.9] INVALID FOR*03/04/2009 INSOMNIA NOS [G47.00] Postoperative Hypothyroidism [E89.0] INVALID FOR* PALPITATIONS [R00.2] INVALID FOR* GOITER UNSPECIFIED [E04.9] INVALID FOR* Hypopotassemia [E87.6] INVALID FOR* Abnormal mammogram, unspecified [R92.8] INVALID FOR* Elevated cholesterol [E78.00] INVALID FOR* Hypocalcemia [E83.51] INVALID FOR* Anxiety [F41.9] Other instructions from your clinician: What is Plantar Fasciitis? Plantar fasciitis is the most common cause of heel pain. The pain is caused by inflammation of the plantar fascia. If you strain your plantar fascia, it becomes weak, swollen and irritated (inflamed). The resulting pain may be isolated in the heel or may appear at different points on the bottom of the foot, from time to time; it may occur in one foot or both. Some think that plantar fasciitis pain is caused by irritation of nerves from tissue swelling or inflammation, but it is debatable. Plantar fasciitis is common in middle-aged people; it also occurs in younger people who are on their feet a lot, such as athletes or soldiers. The plantar fascia is a strong band of connective tissue that extends from the base of the toes, along the bottom of the foot, to the bottom of the heel (calcaneous bone); it acts like a bowstring to maintain the arch of the foot. What are heel spurs? The inflammatory reaction of the heel bone may produce spike-like projections of new bone, called heel spurs. The spurs sometimes show on X-rays. They neither cause the initial pain nor do they cause the initial problem. However, later, having to walk on spurs may cause sharp pain. What causes plantar fasciitis? Plantar fasciitis is caused by straining the ligament that supports your arch. Repeated strain can cause tiny tears in the ligament. These lead to pain and swelling. During walking, the plantar fascia experiences tension up to twice the body weight with each step. While this is normal, those who spend much time on their feet, such as nurses, informal waiter/waitress/waiters, and mail carriers, often experience plantar fasciitis. Athletes involved in tennis or other racquet sports, race walking, jogging or running also show a higher incidence of plantar fasciitis than do those participating in other activities. Thus, it's clear that plantar fasciitis is predominantly an overuse injury. In fact, any activity that results in prolonged tension and stress on the plantar fascia may cause plantar fasciitis. It is possible that changes in footwear may play a role in causing plantar fasciitis, no matter what activity is occurring. Those who are overweight are prone to plantar fasciitis. This is true even for sedentary people who get little physical activity. Abnormalities of the foot and ankle joints may predispose some individuals to development of plantar fasciitis (specifically, over pronation of the subtalar joint). Contributing Factors * Flat feet * Toe running, hill running * Sudden weight increase * High-arched, rigid feet * Soft terrain, e.g. running on sand * Obesity * Pronated feet (rolled inward) * Sudden increase in activity * Family tendency * Poor shoe support * Worn out or poorly fitted shoes * Increasing age * Walking, standing or running for long periods of time, especially on hard surfaces. How is the Injury Treated? Rest Your Feet: Limit, or if possible, stop activities that are causing your heel pain. Try to avoid running or walking on hard surfaces, such as concrete. Use pain as your guide. If your foot is too painful, rest it. Ice: Ice the sore area for 30 to 60 minutes, several times a day, to reduce inflammation and relieve pain. Apply a plastic bag of crushed ice (or a bag of frozen peas) over a towel. Ice the sore area for 15 minutes after activity/exercise. Application of heat is not generally recommended, as heat expands the bone and connective tissue, perhaps exerting greater pressure on nerves and thereby increasing pain. If heat is used, follow it with ice. Medication: If your condition developed recently, anti-inflammatory/analgesic medication, combined with heel pads (see below) may be all that is necessary to relieve pain and to reduce inflammation. If no pain relief has occurred after 2-3 weeks, however, your doctor may inject either cortisone or local anesthetic directly into the tender area. Exercises: Do simple exercises, such as calf stretches and towel stretches (see below) several times a day, especially when you first get up in the morning. These can help your ligament become more flexible and strengthen the muscles that support your arch. Shoes: Poorly fitting shoes can cause plantar fasciitis. The best type of shoe to wear is a good walking or running shoe with good shock absorption and excellent arch support. You should choose the one that fits the best. [place] with your athletic shoes to find a pair that is comfortable and causes fewer symptoms. Put your shoes on as soon as you get out of bed; going barefoot or wearing slippers may make your pain worse. Good brands include (but are not limited to): New Balance, Asics, Saucony, SAS and Merrel?s. Taping: Your doctor may tape your foot to maintain the arch. This takes some of the tension off the plantar fascia. Weight Loss: If your weight is putting extra stress on your feet, your doctor may encourage you to try a weight-loss program. Orthotics: An orthotic insole is a molded piece of rubber, plastic, or other material that you insert into your shoe. It corrects the alignment of your foot and cushions your foot from excessive pounding. These may be prescription or non-prescription. Prescription orthotics are custom-fitted and may fit better and control pain better, but are very expensive. Night Splints: A night splint holds the foot with the toes pointed up and the ankle at a 90-degree angle. This position applies a constant, gentle stretch to the plantar fascia. Corticosteroid Shots: Steroids may be injected into the tender area to reduce inflammation. REHAB Exercises to stretch the plantar fascia, the calf muscles, and the Achilles tendon. Tightness of the muscles of the calves may contribute to plantar fasciitis, so stretching the calf muscles is important to rehabilitation, as is stretching of the plantar fascia itself. Plantar fascial stretches Assisted Dorsiflexion/Plantar Fascia Stretch: Sit on the floor or ground, barefoot, with both legs outstretched. Use a towel or elastic band and wrap it around the ball (and not the toes) of the affected foot. Use the towel or elastic band to provide resistance to upward movement of the forefoot. Pull foot upward (toward your body) with the help of the elastic band or towel, and then return to the starting position. Ten repetitions are recommended. Perform the sequence at least three times a day. Alternate Plantar Fascia Stretch: Sit upright in a chair, barefoot. Place the ankle of the affected foot on your opposite knee. Using the same hand as the affected foot, reach across and grab the toes. Flex the ankle toward and pull the toes toward the [place] cast[place]. To test the stretch, place the thumb of your hand on the bottom of the foot. You should be able to feel the cord-like plantar fascia, running the length of the foot. Hold the stretch for a count of 10, then relax. Repeat 10 times. Do the sequence at least three times a day. Achilles/Calf Stretches Strengthening the muscles of the calves may contribute to successful rehabilitation of plantar fasciitis, as well as prevent reoccurrence. The exercises below will help strengthen the calf muscles. Calf and Achilles Tendon Stretch (Gastrocnemius Stretch): Face a wall, standing an arm's length away. Place one foot back. Place both hands on the wall. Bend the elbows and knee of your forward leg, keeping the heel of the backward foot on the floor and keeping your body straight (aligned), until your forehead nearly touches the wall, or until significant stretch is felt in the muscles of the calf of the backward leg. Hold this position for 10 to 15 seconds. Extend elbows (straighten your arms and stand upright again) and maintain this position for 10 seconds. Repeat this cycle 15 to 20 times. Switch legs and repeat the exercise. Disposition: Return in about 1 month (around 11/29/2018) for plantar fasciitis. Follow-up and Disposition History Recorded Encounter Status:Closed by REBECA BUSCH DPM on 10/29/18 PROGRESS Observed: 10/29/2018 Status: COMPLETED Source: [place] 3:04 PM [facility] REPOSITORY O ID: [id number] Author: Rebeca Busch Service: (none) Author Type: Physician Type: Progress Notes Filed: 10/29/2018 3:24 PM Note Text: Consultation requested by Dr. Arroyo for an opinion regarding left heel pain. My final recommendations will be communicated back to the requesting physician by way of shared Medical record or letter to requesting physician via US mail. Initial Podiatric Office Visit: Chief Complaint: This 43 year old female who presents with chief complaint:left heel pain HPI Patient presents to clinic for evaluation of left heel pain Patient complains of pain to the plantar aspect of left heel for duration of 9 months She states the pain is mostly following periods of rest. She states the pain is not as bad while walking but she has had a chance to sit down for awhile and then Gets up to walk, she has pain. She states the pain is 6/10. Patient has tried icing and inserts. Patient states the icing and inserts do help. PAIN EVALUATION 10/29/2018 Pain Score: 6 Pain Location: Heel-Left Description: Shooting;Sharp Duration Amount of Time: 9 Duration Units: Months Frequency: Continuous No results found for: HBA1C PCP: Luis Arroyo MD PAST MEDICAL HISTORY Diagnosis Date - Anxiety - Breast pain 04/04/12 - Heel spur, left - hyperthyroidism s/p thryoidectomy - Hypothyroidism (acquired) - Insomnia, unspecified - Obesity (BMI 30-39.9) - Other abnormal glucose Current Outpatient Prescriptions: COMPOUNDED PRESCRIPTION B/l gel heel splintsDx: 1. Heel pain levothyroxine (LEVOXYL) 125 mcg tablet Take 1 tablet by mouth once daily. ramelteon (ROZEREM) 8 mg tablet Take 1 tablet by mouth daily at bedtime. No current facility-administered medications for this visit. ALLERGIES No Known Allergies PAST SURGICAL HISTORY Procedure Laterality Date - BX BREAST PERC NEED W/GUID 04/12/12 Right 6 oclock. 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 - PAST SURGICAL HISTORY OF 2004 Ankle Surgery - PAST SURGICAL HISTORY OF 2016 endometrial biopsy-normal - THYROIDECTOMY 2008 [facility] FAMILY HISTORY Problem Relation Age of Onset - Diabetes Mother - Lipids Father - Diabetes Father - Carotid Disease Father - No Known Problems Sister - No Known Problems Maternal Grandmother - No Known Problems Maternal Grandfather - Heart Paternal Grandmother pacer - Alzheimer's Disease Paternal Grandmother - Colon Cancer Paternal Grandfather 70 - No Known Problems Son - No Known Problems Son - Heart Paternal Uncle 50 pacer - Breast Cancer Paternal Aunt 30 30-40 Social History Marital status: Spouse name: suresh Years of education: Number of children: 2 Social History Main Topics Smoking status: Never Smoker Smokeless tobacco: Never Used Alcohol use: Yes 3.0 oz/week Glasses of Wine (5oz): 2 per week Comment: Social Drug use: No Sexual activity: Yes Partners with: Male control/protection: Vasectomy Social History Narrative , 2 boys 5,8 pigs feet cleaner Lives in [facility] REVIEW OF SYSTEMS GENERAL: Negative for Malaise, significant weight loss, fever RESPIRATORY: Negative for cough, wheezing and shortness of breath CARDIOVASCULAR: Negative for chest pain, leg swelling and palpitations GI: Negative for abdominal discomfort, blood in stools or black stools and change in bowel habits : Negative for dysuria, frequency and incontinence MUSCULOSKELETAL: Positive for left heel pain SKIN: Negative for lesions, rash, and itching. HEMATOLOGY/LYMPHOLOGY Negative for prolonged bleeding, bruising easily, and swollen nodes. ENDOCRINE: Negative for cold or heat intolerance, polyuria, polydipsia and goiter. NEURO: negative Physical Exam: Constitutional: Pt is a well developed 43 year old female who is alert, oriented and cooperative Eyes: Following during examination. No redness or drainage. Respiratory: RR normal and nonlabored. Even breathing. No evidence of distress or shortness of breath. Psychology: Patient is engaged during conversation. Normal affect and mood. Does not appear depressed or anxious during encounter. Vascular: Dorsalis pedis and posterior tibial pulses palpable as b/l Capillary Fill time < 5 seconds to digits 1-5 b/l Skin temperature warm to warm proximal to distal b/l Hair growth present to digits Neurological: intact light touch/epicritic sensation - tinel b/l intact protective sensation no significant neurological deficits Dermatological: Nails 1-5 b/l appear normal. Webspaces clean and dry 1-4 b/l. Skin appears well hydrated and supple. good color, texture, turgor. No open lesions present. No callosities present. Musculoskeletal/Orthopaedic: Patient has pain to palpation of left medial calcaneal tubercle Foot type is neutral structurally AJ ROM is decreased with knee extended and flexed 1st MPJ is full when loaded and no pain or crepitus are noted with ROM. MTJ, STJ are full and free of pain and crepitus. +5/5 muscle strength dorsiflexion, plantarflexion, inversion, eversion b/l Radiographs: 3 views left foot ordered October 29, 2018: I have personally reviewed and interpreted these XR myself: No acute fracture. There is plantar heel spur left foot ASSESSMENT: (M72.2) Plantar fasciitis of left foot (primary encounter diagnosis) PLAN: 1. Initial Office Visit - A thorough review of the patient's PMH and Podiatric physical exam was completed. 2. Patient advised to perform stretching excercises, icing, and to make appropriate shoe gear changes to include wearing athletic- type shoes with supportive insoles. No barefoot walking. Patient also given written instructions on how to correctly perform the stretching of the achilles tendon/calf stretches, and the heel spur/plantar fasciitis regimen. 3. Patient advised to seek wide, deep toe box, accomodative, comfortable, lace-up, athletic/walking type footwear that includes motion control characteristics for support and cushion that need to be worn at all times when weight-bearing. Shoes should be tested for torsional stability as well as proper bending at the toebox rather than at the midfoot. Good quality shoes such as, but not limited to, New Balance or Asics are examples of more proper foot gear. 4. Patient recommended to get powerstep insoles for proper support of the arch in order to alleviate the tension and stress on the plantar fascia associated with normal daily walking. Patient advised that these modalities used in conjunction with stretching and icing are able to alleviate most symptoms from this condition. 5. RTC in 6 weeks for f/u, discussed next step of custom FO, night splint or injection if symptoms do not markedly improve Rebeca Busch DPM XR FOOT 3V AP/LAT/OBL Observed: 10/29/2018 Status: F Source: [facility] 2:41 PM [facility] REPOSITORY * * *Final Report* * * DATE OF EXAM: Oct 29 2018 2:41PM [id number] [id number] - XR FOOT 3V AP/LAT/OBL LT / PROCEDURE REASON: Left foot pain * * * * Physician Interpretation * * * * HISTORY: 43-YEAR-OLD FEMALE WITH Left foot pain . pt states pain plantar left heel for 9 months no inj TECHNIQUE: XR FOOT 3V AP/LAT/OBL LT Laterality: LEFT Number of different views (projections): 3 COMPARISON: None. RESULT: Calcaneal enthesophyte insertion Achilles tendon and plantar fascia. Bones and joints are otherwise normal in appearance. No erosions, no fracture no joint space narrowing IMPRESSION: CALCANEAL ENTHESOPHYTES. NO ACUTE BONY ABNORMALITY. Account Administrator: RAHEEL Transcribe Date/Time: Oct 30 2018 2:32P Dictated by : DELIA VILLAREAL MD This examination was interpreted and the report reviewed and electronically signed by: DELIA VILLAREAL MD on Oct 30 2018 2:33PM EST [id number] PROGRESS Observed: 10/29/2018 Status: COMPLETED Source: [place] 2:34 PM [facility] REPOSITORY HNO ID: [id number] Author: Tere Peguero (Rt) Gloria Jamison Service: (none) Author Type: Organ Builder Type: Progress Notes Filed: 10/29/2018 2:41 PM Note Text: Radiology Service Progress Note PATIENT NAME: Jordana Medina DATE OF SERVICE: October 29, 2018 TIME: 2:34 PM PATIENT IDENTITY VERIFICATION COMPLETED USING TWO (2) METHODS: Patient confirmed name verbally and Date of . PATIENT GENDER DATA: Female. status: : No status: NO. PATIENT RELEVANT IMPLANT DATA REVIEWED: Not Applicable RADIOLOGY DEPARTMENT: General X-ray: Exam(s) Completed: Lower Extremity X-Ray(s): Foot, Left: PERIPHERAL IV DATA: Not applicable SIGNED BY: RT Sindy October 29, 2018 2:34 PM CBC AND DIFFERENTIAL Collected: 10/23/2018 Status: F Source: [place] 11:21 AM [facility] REPOSITORY TYPE CODE TESTS RESULT OUT OF REFERENCE UNITS RANGE LAB WBC 3.70-11.00 k/uL WBC 9.74 LAB RBC 3.90-5.20 m/uL RBC 4.24 LAB HGB 11.5-15.5 g/dL Low Hemoglobin 11.3 LAB HCT 36.0-46.0 % Hematocrit 36.6 LAB MCV 80.0-100.0 fL MCV 86.3 LAB MCH 26.0-34.0 pG MCH 26.7 LAB MCHC 30.5-36.0 g/dL MCHC 30.9 LAB RDWCV 11.5-15.0 % RDW-CV High 16.2 LAB PLTCT 150-400 k/uL Platelet Count 314 LAB MPV 9.0-12.7 fL MPV 10.8 LAB ANEUT % Neut% 75.9 LAB AANEUT 1.45-7.50 k/uL Abs Neut 7.39 LAB ALYMP % Lymph% 18.1 LAB AALYMP 1.00-4.00 k/uL Abs Lymph 1.76 LAB AMONO % Yell% 4.5 LAB AAMONO <0.87 k/uL Abs Yell 0.44 LAB AEOS % Eosin% 1.2 LAB AAEOS <0.46 k/uL Abs Eosin 0.12 LAB ABASO % Baso% 0.3 LAB AABASO <0.11 k/uL Abs Baso 0.03 LAB AUNRBC 0 /100 WBC NRBCs 0.0 LAB ABNRBC <0.01 k/uL Absolute nRBC <0.01 LAB DTYP DTYPE Auto Diff Performed By: #### CBCDIF, ICA, CMP, LIPNF, FERR, IRON, MG1, PHOS, VITD, PTHI #### [facility] [employer] [address] [place], [place] [address] CALCIUM, IONIZED Collected: 10/23/2018 Status: F Source: [place] 11:21 AM [facility] REPOSITORY TYPE CODE TESTS RESULT OUT OF REFERENCE UNITS RANGE LAB ICAL 1.08-1.30 mmol/L Low Calcium, Ionized 0.97 LAB NCA 1.08-1.30 mmol/L Low Calcium, Normalized 0.94 Performed By: #### CBCDIF, ICA, CMP, LIPNF, FERR, IRON, MG1, PHOS, VITD, PTHI #### [facility] [employer] [address] [place], [place] [address] COMP METABOLIC PANEL Collected: 10/23/2018 Status: F Source: [place] 11:21 [facility] REPOSITORY TYPE CODE TESTS RESULT OUT OF REFERENCE UNITS RANGE LAB TP 6.3-8.0 g/dL Protein, Total 7.9 LAB ALB 3.9-4.9 g/dL Albumin 4.9 LAB CA 8.5-10.2 mg/dL Low Calcium, Total 7.2 LAB TBIL 0.2-1.3 mg/dL Bilirubin, Total 0.2 LAB ALKP 34-123 U/L Alkaline Phosphatase 90 LAB AST 13-35 U/L AST 23 LAB GLU 74-99 mg/dL Glucose 94 Result Comment: The [place] Diabetes [employer] (ADA) provides guidance for cutoff values for fasting glucose and random glucose. The ADA defines fasting as no caloric intake for at least 8 hours. Fas ting plasma glucose results between 100 to 125 mg/dL indicate increased risk for diabetes (prediabetes). Fasting plasma glucose results greater than or equal to 126 mg/dL meet the criteria for diagnosis of diabetes. In the absence of unequivocal hyperglycemia, results should be confirmed by repeat testing. In a patient with classic symptoms of hyperglycemia or hyperglycemic crisis, random plasma glucose results greater than or equal to 200 mg/dL meet the criteria for diagnosis of diabetes. Reference: Standards of Medical Care in Diabetes 2016, [place] [employer] Association. Diabetes Care. 2016.39(Suppl 1). LAB BUN 7-21 mg/dL BUN 11 LAB CRET 0.58-0.96 mg/dL Creatinine 0.73 LAB NA 136-144 mmol/L Sodium 141 LAB K 3.7-5.1 mmol/L Potassium 4.1 LAB CL 97-105 mmol/L Chloride 98 LAB CO2 22-30 mmol/L CO2 26 LAB AGAP 9-18 mmol/L Anion Gap 17 LAB ALT 7-38 U/L ALT 15 LAB GFRAA eGFR- Amer. >60 LAB GFRNAA . eGFR-All Other Races >60 Result Comment: eGFR (Estimated GFR) Units of measure: mL/min/1.73 meters squared eGFR is derived from the reexpressed MDRD Study equation using the following parameters: serum creatinine, age, gender and race. The creatinine assay has been calibrated to be traceable to IDMS. An eGFR <60 mL/min/1.73m2 for >3 months is consistent with chronic kidney disease. Refer to KDOQI guidelines for clinical interpretation. In patients with unstable renal function, e.g. those with acute kidney injury, the eGFR may not accurately reflect actual GFR. Performed By: #### CBCDIF, ICA, CMP, LIPNF, FERR, IRON, MG1, PHOS, VITD, PTHI #### [facility] [address] [address] LIPID PANEL, NONFAST Collected: 10/23/2018 Status: F Source: [place] 11:21 AM [facility] REPOSITORY TYPE CODE TESTS RESULT OUT OF REFERENCE UNITS RANGE LAB CHOLNF <200 mg/dL Total Cholesterol NF 194 Result Comment: <200 mg/dL, Desirable 200-239 mg/dL, Borderline high >239 mg/dL, High LAB TRIGNF <150 mg/dL Triglycerides, NF 110 Result Comment: <150 mg/dL, Normal 150-199 mg/dL, Borderline high 200-499 mg/dL, High >499 mg/dL, Very high LAB HDLNF >39 mg/dL HDL Cholesterol, NF 41 Result Comment: 40-59 mg/dL, Acceptable >59 mg/dL, High: Negative risk factor for coronary heart disease <40 mg/dL, Low: Positive risk factor for coronary heart disease LAB LDLNF <100 mg/dL LDL Cholesterol, High NF 131 Result Comment: <100 mg/dL, Optimal 100-129 mg/dL, Near optimal/above optimal 130-159 mg/dL, Borderline high 160-189 mg/dL, High >189 mg/dL, Very high Secondary prevention optimal LDL Cholesterol levels are recommended to be < 70 mg/dL LAB NOHDLN <130 mg/dL High Non HDL Chol, 153 NF Result Comment: <130 mg/dL, Optimal 130-159 mg/dL, Near optimal/above optimal 160-189 mg/dL, Borderline high 190-219 mg/dL, High >219 mg/dL, Very high Secondary prevention optimal non HDL Cholesterol levels are recommended to be < 100 mg/dL LAB VLDLNF <30 mg/dL VLDL Cholesterol, NF 22 LAB TCHDLN <5.10 mg/dL T Chol/HDL Ratio NF 4.73 LAB LDLHDN <2.54 mg/dL LDL/HDL Ratio, NF High 3.20 Result Comment: Reference: 1. National Cholesterol Education Program ATP III Guideline At-A-Glance Quick Desk Reference: National Heart, Lung, and Blood Hunt. National Institutes of Health. 2001: NIH Publication No. 01-3305. 2. An International Atherosclerosis Society position paper: global recommendations for the management of dyslipidemia: executive summary, Atherosclerosis. 2014: 232(2):410-413. Performed By: #### CBCDIF, ICA, CMP, LIPNF, FERR, IRON, MG1, PHOS, VITD, PTHI #### [place] [address] FERRITIN Collected: 10/23/2018 Status: F Source: [place] 11:21 AM [facility] REPOSITORY TYPE CODE TESTS RESULT OUT OF REFERENCE UNITS RANGE LAB FERR 14.7-205.1 ng/mL Ferritin 57.7 Performed By: #### CBCDIF, ICA, CMP, LIPNF, FERR, IRON, MG1, PHOS, VITD, PTHI #### [place] [address] IRON AND TIBC Collected: 10/23/2018 Status: F Source: [place] 11:21 AM [facility] REPOSITORY TYPE CODE TESTS RESULT OUT OF REFERENCE UNITS RANGE LAB IRN 41-186 ug/dL Low Iron 34 LAB TIBC 232-386 ug/dL TIBC 332 LAB SAT 15-57 % Low Transferrin Saturatn 10 Performed By: #### CBCDIF, ICA, CMP, LIPNF, FERR, IRON, MG1, PHOS, VITD, PTHI #### [place] [address] MAGNESIUM Collected: 10/23/2018 Status: F Source: [place] 11:21 AM [facility] REPOSITORY TYPE CODE TESTS RESULT OUT OF REFERENCE UNITS RANGE LAB MG 1.7-2.3 mg/dL Magnesium 1.9 Performed By: #### CBCDIF, ICA, CMP, LIPNF, FERR, IRON, MG1, PHOS, VITD, PTHI #### [place] [address] PHOSPHORUS Collected: 10/23/2018 Status: F Source: [place] 11: [facility] REPOSITORY TYPE CODE TESTS RESULT OUT OF REFERENCE UNITS RANGE LAB PHOS 2.7-4.8 mg/dL High Phosphorus 5.0 Performed By: #### CBCDIF, ICA, CMP, LIPNF, FERR, IRON, MG1, PHOS, VITD, PTHI #### [place] [address] VITAMIN D 25 HYDROXY Collected: 10/23/2018 Status: F Source: [place] 11:21 AM [facility] REPOSITORY TYPE CODE TESTS RESULT OUT OF REFERENCE UNITS RANGE LAB VITD 31.0-80.0 ng/mL Low Vitamin D 25 29.2 Hydroxy Result Comment: Classification of 25 [place] Vitamin D status: Insufficiency/Moderate Deficiency: < or = 30 ng/mL Sufficiency/Optimal Levels: 31 to 80 ng/mL Toxicity: > 100 ng/mL Test performed by chemiluminescent immunoassay. Performed By: #### CBCDIF, ICA, CMP, LIPNF, FERR, IRON, MG1, PHOS, VITD, PTHI #### [facility] [employer] [address] [place], [place] [address] PTH, INTACT Collected: 10/23/2018 Status: F Source: [place] 11:21 AM [facility] REPOSITORY TYPE CODE TESTS RESULT OUT OF REFERENCE UNITS RANGE LAB PTH 15-65 pg/mL Low PTH, Intact 14 Performed By: #### CBCDIF, ICA, CMP, LIPNF, FERR, IRON, MG1, PHOS, VITD, PTHI #### [facility] [employer] [address] [place], [place] [address] PROGRESS Observed: 10/23/2018 Status: COMPLETED Source: [place] 10:16 AM [facility] REPOSITORY O ID: [id number] Author: Luis Sumner) Cruz Service: (none) Author Type: Physician Type: Progress Notes Filed: 10/24/2018 8:00 AM Note Text: Chief Complaint Patient presents with: Physical Establish Care HPI Jordana Medina is a 43 year old female who presents here today for Above Complaints. Previously seeing Dr. Deng in this office for PCP. Seen by myself 3-4 months ago for anxiety symptoms. Patient states that she has not been taking the zoloft as she ran out and with insurance changes did not know how much it would cost. Didn't notice a change in anxiety symptoms while she was on it, but only took for 1 month. Was on multiple medications to help with insomnia, not taking any currently because none were effective. Requesting new rx as she is currently taking OTC sleep aid which has not worked for her either. Requesting referral to podiatry for known heel spur on left that is tender when walking barefoot. Has been treating with ice and insoles, but has not improved over the last few months. Patient states that she has not had mammogram in over a year. States she has screening mammogram through [facility] last year which was negative. Complaining of left breast itching, nipple pain, and scaling under nipple for the last 2 months. Nipple scaling was checked 2 years ago and was benign. 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 Told to follow up in 1 year. Due for repeat blood work to follow up on hypocalcemia and to check routine blood work. Past medical history, appointments, medications, allergies reviewed. Previous Medical History PAST MEDICAL HISTORY Diagnosis Date - Anxiety - Breast pain 04/04/12 - hyperthyroidism - Insomnia, unspecified - Other abnormal glucose Previous Surgical History PAST SURGICAL HISTORY Procedure Laterality Date - BX BREAST PERC NEED W/GUID 04/12/12 Right 6 oclock. 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 - PAST SURGICAL HISTORY OF 2004 Ankle Surgery - THYROIDECTOMY [facility] Family History FAMILY HISTORY Problem Relation Age of Onset - Diabetes Mother - Lipids Father - Diabetes Father - Carotid Disease Father - No Known Problems Sister - No Known Problems Maternal Grandmother - No Known Problems Maternal Grandfather - Heart Paternal Grandmother pacer - Alzheimer's Disease Paternal Grandmother - Colon Cancer Paternal Grandfather 70 - No Known Problems Son - No Known Problems Son - Heart Paternal Uncle 50 pacer - Breast Cancer Paternal Aunt 30 30-40 Patient Allergies ALLERGIES No Known Allergies Current Medications Current Outpatient Prescriptions on File Prior to Visit: levothyroxine (LEVOXYL) 125 mcg tablet Take 1 tablet by mouth once daily. COMPOUNDED PRESCRIPTION B/l gel heel splintsDx: 1. Heel pain amitriptyline (ELAVIL) 25 mg tablet Take 1 tablet by mouth daily at bedtime. (Patient not taking: Reported on 10/23/2018 ) sertraline (ZOLOFT) 50 mg tablet Take 1 tablet by mouth once daily. (Patient not taking: Reported on 10/23/2018 ) fluticasone (FLONASE) 50 mcg/actuation nasal spray Use 2 Sprays in each nostril once daily. Rinse mouth after use. (Patient not taking: Reported on 10/23/2018 ) ibuprofen (MOTRIN) 600 mg tablet Take 1 tablet by mouth every 8 hours as needed for Pain. (Patient not taking: Reported on 10/23/2018 ) No current facility-administered medications on file prior to visit. 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 Lives in [facility] Review of Symptoms REVIEW OF SYSTEMS GENERAL: No weight loss, malaise or fevers HEENT: Negative for frequent or significant headaches, No changes in hearing or vision, no nose bleeds or other nasal problems NECK: Negative for lumps, goiter, pain and significant neck swelling RESPIRATORY: Negative for cough, hemoptysis, wheezing, COPD, dyspnea or shortness of breath CARDIOVASCULAR: Negative for chest pain, leg swelling, hypertension, CHF or palpitations GI: No nausea, vomiting, or diarrhea : No history of dysuria, frequency or incontinence GRIT BLASTER: Negative for abnormal vaginal bleeding, abnormal vaginal discharge MUSCULOSKELETAL: Negative for joint pain or swelling, back pain or muscle pain SKIN: See HPI PSYCH: See HPI EXAM: BP 112/68 Pulse 94 Resp 16 Ht 161.9 cm (5' 3.75) Wt 95.7 kg (211 lb) BMI 36.50 kg/m? General Appearance: Well appearing, alert, in no acute distress, well-hydrated, well nourished.. Skin: Skin color, texture, turgor normal, no suspicious rashes or lesions. Lungs: lungs clear to auscultation. No wheezing, rhonchi, rales. Heart: RRR without murmur, gallop, or rubs. No ectopy. Breast: Inspection negative. No nipple discharge or bleeding. No palpable mass and No skin changes or dimpling. Abdomen: Normal abdominal exam, Abdomen soft, non-tender. Bowel sounds normal. No masses, organomegaly. Extremities: No deformities, edema, skin discoloration, clubbing or cyanosis. Good capillary refill. . Health Maintenance List ANNUAL PCP TEAM CHRONIC DISEASE VISIT due on 1995 DTAP,TDAP,TD(1 - Tdap) due on 1996 MAMMOGRAM due on 2017 PAP EVERY 5 YEARS due on 11/19/2017 HPV EVERY 5 YEARS due on 11/19/2017 INFLUENZA(1) due on 07/20/2018 Data reviewed Component Latest Ref Rng AND Units 01/31/2018 Protein, Total 6.3 - 8.0 g/dL 8.0 Albumin 3.9 - 4.9 g/dL 4.5 Calcium 8.5 - 10.2 mg/dL 7.5 (L) Bilirubin, Total 0.2 - 1.3 mg/dL 0.2 Alkaline Phosphatase 32 - 117 U/L 90 AST 13 - 35 U/L 16 Glucose 74 - 99 mg/dL 77 BUN 7 - 21 mg/dL 9 Creatinine 0.58 - 0.96 mg/dL 0.71 Sodium 136 - 144 mmol/L 140 Potassium 3.7 - 5.1 mmol/L 3.8 Chloride 97 - 105 mmol/L 98 CO2 22 - 30 mmol/L 25 Anion Gap 9 - 18 mmol/L 17 ALT 7 - 38 U/L 10 eGFR- >60 eGFR-All Other Races . >60 WBC 3.70 - 11.00 k/uL 9.35 RBC 3.90 - 5.20 m/uL 4.42 Hemoglobin 11.5 - 15.5 g/dL 10.5 (L) Hematocrit 36.0 - 46.0 % 34.9 (L) MCV 80.0 - 100.0 fL 79.0 (L) MCH 26.0 - 34.0 pG 23.8 (L) MCHC 30.5 - 36.0 g/dL 30.1 (L) RDW-CV 11.5 - 15.0 % 16.4 (H) Platelet Count 150 - 400 k/uL 357 MPV 9.0 - 12.7 fL 10.9 Absolute nRBC <0.01 k/uL <0.01 TSH 0.400 - 5.500 uU/mL 3.290 ASSESSMENT/PLAN: 1. Annual physical exam - ICD9: V70.0, ICD10: Z00.00 (primary diagnosis) - Set up for mammogram, yearly mammogram recommended - Recommended regular aerobic exercise. - Discussed need and benefit for weight loss. BMI 36.50 kg/(m2) - Check CBC with diff, CMP, and fasting lipid panel - Vaccination(s) recommended today of Tdap - Follow up for annual exam in one year. - LIPID PANEL, NONFASTING 2. Hypocalcemia - ICD9: 275.41, ICD10: E83.51 Repeat CMP - COMP METABOLIC PANEL 3. Anemia, unspecified type - ICD9: 285.9, ICD10: D64.9 Repeat CBC - CBC - CBC + DIFF 4. Postoperative hypothyroidism - ICD9: 244.0, ICD10: E89.0 - Instructed patient on importance of taking on an empty stomach either first thing in the morning or at bedtime. - check TSH in 6 months - continue current dose of Synthroid 0.125 mg 5. Anxiety - ICD9: 300.00, ICD10: F41.9 Uncontrolled. Will have patient follow up in 4 weeks to discuss further. 6. Heel spur, left - ICD9: 726.73, ICD10: M77.32 - CONSULT TO PODIATRY 7. Screening mammogram, encounter for - ICD9: V76.12, ICD10: Z12.31 - Completed breast exam-normal today. - Set up for mammogram, yearly mammogram recommended - Follow up for annual exam in one year. - SAIRA SCREENING 8. Need for vaccination - ICD9: V05.9, ICD10: Z23 - TDAP VACCINE AGE 7+ IM 9. Chronic insomnia - ICD9: 780.52, ICD10: F51.04 Start ramelteon nightly, recheck in 4 weeks. - RAMELTEON 8 MG TABLET Luis Arroyo MD CNOV Observed: 10/23/2018 Status: COMPLETED Source: [place] 10:00 AM [facility] REPOSITORY Office Visit (FAMPWS) JORDANA MEDINA ([id number]) 1975 F Date Time Provider Department 10/23/18 10:00 AM LUIS ARROYO) FAMPWS During your visit today, we recorded the following information about you: Pulse Respiration Blood pressure Weight 94/minute 16/minute 112/68 95.7 kg Height 1.619 m Luis Arroyo MD 10/24/2018 8:00 AM Signed Chief Complaint Patient presents with: Physical Establish Care HPI Jordana Medina is a 43 year old female who presents here today for Above Complaints. Previously seeing Dr. Deng in this office for PCP. Seen by myself 3-4 months ago for anxiety symptoms. Patient states that she has not been taking the zoloft as she ran out and with insurance changes did not know how much it would cost. Didn't notice a change in anxiety symptoms while she was on it, but only took for 1 month. Was on multiple medications to help with insomnia, not taking any currently because none were effective. Requesting new rx as she is currently taking OTC sleep aid which has not worked for her either. Requesting referral to podiatry for known heel spur on left that is tender when walking barefoot. Has been treating with ice and insoles, but has not improved over the last few months. Patient states that she has not had mammogram in over a year. States she has screening mammogram through [facility] last year which was negative. Complaining of left breast itching, nipple pain, and scaling under nipple for the last 2 months. Nipple scaling was checked 2 years ago and was benign. 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 Told to follow up in 1 year. Due for repeat blood work to follow up on hypocalcemia and to check routine blood work. Past medical history, appointments, medications, allergies reviewed. Previous Medical History PAST MEDICAL HISTORY Diagnosis Date - Anxiety - Breast pain 04/04/12 - hyperthyroidism - Insomnia, unspecified - Other abnormal glucose Previous Surgical History PAST SURGICAL HISTORY Procedure Laterality Date - BX BREAST PERC NEED W/GUID 04/12/12 Right 6 oclock. 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 - PAST SURGICAL HISTORY OF 2004 [facility]le [facility] Family History FAMILY HISTORY Problem Relation Age of Onset - Diabetes Mother - Lipids Father - Diabetes Father - Carotid Disease Father - No Known Problems Sister - No Known Problems Maternal Grandmother - No Known Problems Maternal Grandfather - Heart Paternal Grandmother pacer - Alzheimer's Disease Paternal Grandmother - Colon Cancer Paternal Grandfather 70 - No Known Problems Son - No Known Problems Son - Heart Paternal Uncle 50 pacer - Breast Cancer Paternal Aunt 30 30-40 Patient Allergies ALLERGIES No Known Allergies Current Medications Current Outpatient Prescriptions on File Prior to Visit: levothyroxine (LEVOXYL) 125 mcg tablet Take 1 tablet by mouth once daily. COMPOUNDED PRESCRIPTION B/l gel heel splintsDx: 1. Heel pain amitriptyline (ELAVIL) 25 mg tablet Take 1 tablet by mouth daily at bedtime. (Patient not taking: Reported on 10/23/2018 ) sertraline (ZOLOFT) 50 mg tablet Take 1 tablet by mouth once daily. (Patient not taking: Reported on 10/23/2018 ) fluticasone (FLONASE) 50 mcg/actuation nasal spray Use 2 Sprays in each nostril once daily. Rinse mouth after use. (Patient not taking: Reported on 10/23/2018 ) ibuprofen (MOTRIN) 600 mg tablet Take 1 tablet by mouth every 8 hours as needed for Pain. (Patient not taking: Reported on 10/23/2018 ) No current facility-administered medications on file prior to visit. 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 Lives in [facility] Review of Symptoms REVIEW OF SYSTEMS GENERAL: No weight loss, malaise or fevers HEENT: Negative for frequent or significant headaches, No changes in hearing or vision, no nose bleeds or other nasal problems NECK: Negative for lumps, goiter, pain and significant neck swelling RESPIRATORY: Negative for cough, hemoptysis, wheezing, COPD, dyspnea or shortness of breath CARDIOVASCULAR: Negative for chest pain, leg swelling, hypertension, CHF or palpitations GI: No nausea, vomiting, or diarrhea : No history of dysuria, frequency or incontinence GRIT BLASTER: Negative for abnormal vaginal bleeding, abnormal vaginal discharge MUSCULOSKELETAL: Negative for joint pain or swelling, back pain or muscle pain SKIN: See HPI PSYCH: See HPI EXAM: BP 112/68 Pulse 94 Resp 16 Ht 161.9 cm (5' 3.75) Wt 95.7 kg (211 lb) BMI 36.50 kg/m? General Appearance: Well appearing, alert, in no acute distress, well-hydrated, well nourished.. Skin: Skin color, texture, turgor normal, no suspicious rashes or lesions. Lungs: lungs clear to auscultation. No wheezing, rhonchi, rales. Heart: RRR without murmur, gallop, or rubs. No ectopy. Breast: Inspection negative. No nipple discharge or bleeding. No palpable mass and No skin changes or dimpling. Abdomen: Normal abdominal exam, Abdomen soft, non-tender. Bowel sounds normal. No masses, organomegaly. Extremities: No deformities, edema, skin discoloration, clubbing or cyanosis. Good capillary refill. . Health Maintenance List ANNUAL PCP TEAM CHRONIC DISEASE VISIT due on 1995 DTAP,TDAP,TD(1 - Tdap) due on 1996 MAMMOGRAM due on 2017 PAP EVERY 5 YEARS due on 11/19/2017 HPV EVERY 5 YEARS due on 11/19/2017 INFLUENZA(1) due on 07/20/2018 Data reviewed Component Latest Ref Rng AND Units 01/31/2018 Protein, Total 6.3 - 8.0 g/dL 8.0 Albumin 3.9 - 4.9 g/dL 4.5 Calcium 8.5 - 10.2 mg/dL 7.5 (L) Bilirubin, Total 0.2 - 1.3 mg/dL 0.2 Alkaline Phosphatase 32 - 117 U/L 90 AST 13 - 35 U/L 16 Glucose 74 - 99 mg/dL 77 BUN 7 - 21 mg/dL 9 Creatinine 0.58 - 0.96 mg/dL 0.71 Sodium 136 - 144 mmol/L 140 Potassium 3.7 - 5.1 mmol/L 3.8 Chloride 97 - 105 mmol/L 98 CO2 22 - 30 mmol/L 25 Anion Gap 9 - 18 mmol/L 17 ALT 7 - 38 U/L 10 eGFR- >60 eGFR-All Other Races . >60 WBC 3.70 - 11.00 k/uL 9.35 RBC 3.90 - 5.20 m/uL 4.42 Hemoglobin 11.5 - 15.5 g/dL 10.5 (L) Hematocrit 36.0 - 46.0 % 34.9 (L) MCV 80.0 - 100.0 fL 79.0 (L) MCH 26.0 - 34.0 pG 23.8 (L) MCHC 30.5 - 36.0 g/dL 30.1 (L) RDW-CV 11.5 - 15.0 % 16.4 (H) Platelet Count 150 - 400 k/uL 357 MPV 9.0 - 12.7 fL 10.9 Absolute nRBC <0.01 k/uL <0.01 TSH 0.400 - 5.500 uU/mL 3.290 ASSESSMENT/PLAN: 1. Annual physical exam - ICD9: V70.0, ICD10: Z00.00 (primary diagnosis) - Set up for mammogram, yearly mammogram recommended - Recommended regular aerobic exercise. - Discussed need and benefit for weight loss. BMI 36.50 kg/(m2) - Check CBC with diff, CMP, and fasting lipid panel - Vaccination(s) recommended today of Tdap - Follow up for annual exam in one year. - LIPID PANEL, NONFASTING 2. Hypocalcemia - ICD9: 275.41, ICD10: E83.51 Repeat CMP - COMP METABOLIC PANEL 3. Anemia, unspecified type - ICD9: 285.9, ICD10: D64.9 Repeat CBC - CBC - CBC + DIFF 4. Postoperative hypothyroidism - ICD9: 244.0, ICD10: E89.0 - Instructed patient on importance of taking on an empty stomach either first thing in the morning or at bedtime. - check TSH in 6 months - continue current dose of Synthroid 0.125 mg 5. Anxiety - ICD9: 300.00, ICD10: F41.9 Uncontrolled. Will have patient follow up in 4 weeks to discuss further. 6. Heel spur, left - ICD9: 726.73, ICD10: M77.32 - CONSULT TO PODIATRY 7. Screening mammogram, encounter for - ICD9: V76.12, ICD10: Z12.31 - Completed breast exam-normal today. - Set up for mammogram, yearly mammogram recommended - Follow up for annual exam in one year. - SAIRA SCREENING 8. Need for vaccination - ICD9: V05.9, ICD10: Z23 - TDAP VACCINE AGE 7+ IM 9. Chronic insomnia - ICD9: 780.52, ICD10: F51.04 Start ramelteon nightly, recheck in 4 weeks. - RAMELTEON 8 MG TABLET Luis Arroyo MD Referring Provider: SELF [200] Allergies As of Date: 10/23/2018 (No Known Allergies) Date Reviewed: 10/23/2018 Reviewed by: Luis Watters () Cruz - Fully Assessed Reason for Visit: Physical [83] Establish Care [42] Primary Visit Diagnosis:Annual physical exam [Z00.00] Other Visit Diagnoses:Hypocalcemia [E83.51] Anemia, unspecified type [D64.9] Postoperative hypothyroidism [E89.0] Anxiety [F41.9] Heel spur, left [M77.32] Screening mammogram, encounter for [Z12.31] Need for vaccination [Z23] Chronic insomnia [F51.04] Order(s):TDAP VACCINE AGE 7+ IM [[id number]] Order #: [id number] COMP METABOLIC PANEL [SQCMP] Order #: [id number] FUTURE CONSULT TO PODIATRY [9034] Order #: [id number]: 1 SAIRA SCREENING [4141532] Order #: [id number] FUTURE CBC + DIFF [SQCBCDIF] Order #: [id number] FUTURE LIPID PANEL, NONFASTING [SQLIPNF] Order #: [id number] FUTURE ramelteon (ROZEREM) 8 mg tabletTake 1 tablet by mouth daily at bedtime.Disp: 30 tabletRfl: 2 Prescriptions as of 10/23/2018 Sig: LEVOTHYROXINE 125 MCG TABLET Take 1 tablet by mouth once d* COMPOUNDED PRESCRIPTION B/l gel heel splints Dx: 1.* RAMELTEON 8 MG TABLET Take 1 tablet by mouth daily * Problem List As Of Date 10/23/2018 Noted Resolved ABNORMAL GLUCOSE NEC [R73.09] HYPOTHYROIDISM NOS [E03.9] INVALID FOR*03/04/2009 INSOMNIA NOS [G47.00] Postoperative Hypothyroidism [E89.0] INVALID FOR* PALPITATIONS [R00.2] INVALID FOR* GOITER UNSPECIFIED [E04.9] INVALID FOR* Hypopotassemia [E87.6] INVALID FOR* Abnormal mammogram, unspecified [R92.8] INVALID FOR* Elevated cholesterol [E78.00] INVALID FOR* Hypocalcemia [E83.51] INVALID FOR* Anxiety [F41.9] Prescriptions ordered this encounter Disp Refills Start End RAMELTEON 8 MG TABLET 30 t* 2 10/23/2018 Route: ORAL Sig: Take 1 tablet by mouth daily at bedtime. Medications Discontinued During This Encounter sertraline (ZOLOFT) 50 mg tablet 90 t* 3 03/28/2018 10/23/2018 Route: ORAL Sig: Take 1 tablet by mouth once daily. Patient not taking: Reported on 10/23/2018 Disc: Reason for discontinue is not on file. amitriptyline (ELAVIL) 25 mg tablet 30 t* 3 03/28/2018 10/23/2018 Route: ORAL Sig: Take 1 tablet by mouth daily at bedtime. Patient not taking: Reported on 10/23/2018 Disc: Reason for discontinue is not on file. ibuprofen (MOTRIN) 600 mg tablet 60 t* 2 04/04/2017 10/23/2018 Route: ORAL Sig: Take 1 tablet by mouth every 8 hours as needed for Pain. Patient not taking: Reported on 10/23/2018 Disc: Reason for discontinue is not on file. fluticasone (FLONASE) 50 mcg/actuati* 1 Venancio* 11 04/30/2017 10/23/2018 Route: EACH NOSTRIL Sig: Use 2 Sprays in each nostril once daily. Rinse mouth after use. Patient not taking: Reported on 10/23/2018 Disc: Reason for discontinue is not on file. Disposition: Return in about 4 weeks (around 11/20/2018). Follow-up and Disposition History Recorded Encounter Status:Closed by BRAULIO FISHER MA on 10/24/18 CBC Collected: 01/31/2018 Status: F Source: [place] 11:59 AM [facility] REPOSITORY TYPE CODE TESTS RESULT OUT OF REFERENCE UNITS RANGE LAB WBC 3.70-11.00 k/uL WBC 9.35 LAB RBC 3.90-5.20 m/uL RBC 4.42 LAB HGB 11.5-15.5 g/dL Low Hemoglobin 10.5 LAB HCT 36.0-46.0 % Low Hematocrit 34.9 LAB MCV 80.0-100.0 fL Low MCV 79.0 LAB MCH 26.0-34.0 pG Low MCH 23.8 LAB MCHC 30.5-36.0 g/dL Low MCHC 30.1 LAB RDWCV 11.5-15.0 % RDW-CV High 16.4 LAB PLTCT 150-400 k/uL Platelet Count 357 LAB MPV 9.0-12.7 fL MPV 10.9 LAB ABSNUC <0.01 k/uL Absolute nRBC <0.01 Performed By: #### CBC, CMP, TSH #### [facility] [address] [place], [place] [address] COMP METABOLIC PANEL Collected: 01/31/2018 Status: F Source: [place] 11:59 AM [facility] REPOSITORY TYPE CODE TESTS RESULT OUT OF REFERENCE UNITS RANGE LAB TP 6.3-8.0 g/dL Protein, Total 8.0 LAB ALB 3.9-4.9 g/dL Albumin 4.5 LAB CA 8.5-10.2 mg/dL Low Calcium, Total 7.5 LAB TBIL 0.2-1.3 mg/dL Bilirubin, Total 0.2 LAB ALKP 32-117 U/L Alkaline Phosphatase 90 LAB AST 13-35 U/L AST 16 LAB GLU 74-99 mg/dL Glucose 77 Result Comment: The [place] [employer] (ADA) provides guidance for cutoff values for fasting glucose and random glucose. The ADA defines fasting as no caloric intake for at least 8 hours. Fas ting plasma glucose results between 100 to 125 mg/dL indicate increased risk for diabetes (prediabetes). Fasting plasma glucose results greater than or equal to 126 mg/dL meet the criteria for diagnosis of diabetes. In the absence of unequivocal hyperglycemia, results should be confirmed by repeat testing. In a patient with classic symptoms of hyperglycemia or hyperglycemic crisis, random plasma glucose results greater than or equal to 200 mg/dL meet the criteria for diagnosis of diabetes. Reference: Standards of Medical Care in Diabetes 2016, [place] [employer]. Diabetes Care. 2016.39(Suppl 1). LAB BUN 7-21 mg/dL BUN 9 LAB CRET 0.58-0.96 mg/dL Creatinine 0.71 LAB NA 136-144 mmol/L Sodium 140 LAB K 3.7-5.1 mmol/L Potassium 3.8 LAB CL 97-105 mmol/L Chloride 98 LAB CO2 22-30 mmol/L CO2 25 LAB AGAP 9-18 mmol/L Anion Gap 17 LAB ALT 7-38 U/L ALT 10 LAB GFRAA eGFR- Amer. >60 LAB GFRNAA . eGFR-All Other Races >60 Result Comment: eGFR (Estimated GFR) Units of measure: mL/min/1.73 meters squared eGFR is derived from the reexpressed MDRD Study equation using the following parameters: serum creatinine, age, gender and race. The creatinine assay has been calibrated to be traceable to IDMS. An eGFR <60 mL/min/1.73m2 for >3 months is consistent with chronic kidney disease. Refer to KDOQI guidelines for clinical interpretation. In patients with unstable renal function, e.g. those with acute kidney injury, the eGFR may not accurately reflect actual GFR. Performed By: #### CBC, CMP, TSH #### [facility] [address], [place] [address] TSH Collected: 01/31/2018 Status: F Source: [place] 11:59 [facility] REPOSITORY TYPE CODE TESTS RESULT OUT OF RANGE REFERENCE UNITS LAB TSH 0.400-5.500 uU/mL TSH 3.290 Result Comment: If the patient is , TSH reference range varies by gestational period: First Trimester 0.100-2.500 uU/mL Second Trimester 0.200-3.000 uU/mL Third Trimester 0.300-3.000 uU/mL References: 1. Cardoza L, Mahamed M, Glenroy EK, et al. Management of Thyroid Dysfunction during and : An Endocrine Society Clinical Practice Guideline. J Clin Endocrinol Metab, 2012:97:7819-8578. 2. Ramos FATIMA. Overview of thyroid disease in . UpToDate. 2016. Accessed on May 05, 2016. Performed By: #### CBC, CMP, TSH #### [facility] [address] [place], [place] [address] PROGRESS Observed: 01/31/2018 Status: COMPLETED Source: [place] 11:23 AM [facility] REPOSITORY HNO ID: [id number] Author: Luis Sumner) Cruz Service: (none) Author Type: Physician Type: Progress Notes Filed: 01/31/2018 12:58 PM Note Text: Chief Complaint No chief complaint on file. HPI Jordana Medina is a 42 year old female who presents here today for Evaluation of anxiety. Complaining of anxiety symptoms which have been present most of her life, but has worsened over the last 2 months. States that she has noticed that if she is driving on a busy highway she becomes very anxious and worries excessively about her son who started driving. Complains of inability to control worry, racing thoughts at night with insomnia, irritability/agitation, and panic symptoms occasionally with feeling flushed. Patient has not been treated for anxiety in the past or been to counseling. Was seen by GRIT BLASTER after having mirena placed and they started her on Wellbutrin. Past medical history, appointments, medications, allergies reviewed. Previous Medical History PAST MEDICAL HISTORY Diagnosis Date - Breast pain 04/04/12 - hyperthyroidism - Insomnia, unspecified - Other abnormal glucose Previous Surgical History PAST SURGICAL HISTORY Procedure Laterality Date - BX BREAST PERC NEED W/GUID 04/12/12 Right 6 oclock. 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 - PAST SURGICAL HISTORY OF 2004 Ankle Surgery - THYROIDECTOMY [facility] Family History FAMILY HISTORY Problem Relation Age of Onset - Diabetes Mother - Lipids Father - Colon Cancer Paternal Grandfather 70 - Heart Paternal Grandmother pacer - Heart Paternal Uncle 50 pacer - Breast Cancer Paternal Aunt 30 30-40 - Diabetes Father Patient Allergies ALLERGIES No Known Allergies Current Medications Current Outpatient Prescriptions on File Prior to Visit: fluticasone (FLONASE) 50 mcg/actuation nasal spray Use 2 Sprays in each nostril once daily. Rinse mouth after use. levothyroxine (LEVOXYL) 125 mcg tablet Take 1 tablet by mouth once daily. COMPOUNDED PRESCRIPTION B/l gel heel splintsDx: 1. Heel pain ibuprofen (MOTRIN) 600 mg tablet Take 1 tablet by mouth every 8 hours as needed for Pain. Phentermine HCl 37.5 mg capsule Take 1 capsule by mouth once daily. No current facility-administered medications on file prior to visit. 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 PSYCH: Posture and motor behavior: normal posture and motor behavior Dress, grooming, personal hygiene: normal dress and grooming Facial expression: good eye contact Speech: normal speech Mood: anxious Coherency and relevance of thought: normal thought processes Memory: normal memory Health Maintenance List TETANUS due on 1988 MAMMOGRAM due on 2017 INFLUENZA(1) due on 07/20/2017 PAP EVERY 5 YEARS due on 11/19/2017 HPV EVERY 5 YEARS due on 11/19/2017 ASSESSMENT/PLAN: 1. LIZ (generalized anxiety disorder) - ICD9: 300.02, ICD10: F41.1 (primary diagnosis) Start SSRI, will give vistaril for panic symptoms/insomnia, and refer to counseling. Obtain blood work to rule out uncontrolled thyroid. Will call with results and see back in 2-3 months for establish visit. - SERTRALINE 50 MG TABLET - HYDROXYZINE PAMOATE 25 MG CAPSULE - CONSULT TO PSYCHOLOGY - TSH BLD - CBC - COMP METABOLIC PANEL 2. Insomnia, unspecified type - ICD9: 780.52, ICD10: G47.00 See above. - CONSULT TO PSYCHOLOGY - TSH BLD - CBC - COMP METABOLIC PANEL Luis Arroyo MD CNOV Observed: 01/31/2018 Status: COMPLETED Source: [place] 11:20 AM [facility] REPOSITORY Office Visit (FAMPWS) JORDANA MEDINA ([id number]) 1975 F Date Time Provider Department 01/31/18 11:20 AM LUIS ARROYO) FAMPWS During your visit today, we recorded the following information about you: Pulse Respiration Blood pressure Weight 96/minute 20/minute 116/82 88.5 kg Luis Arroyo MD 01/31/2018 12:58 PM Signed Chief Complaint No chief complaint on file. NEO Medina is a 42 year old female who presents here today for Evaluation of anxiety. Complaining of anxiety symptoms which have been present most of her life, but has worsened over the last 2 months. States that she has noticed that if she is driving on a busy highway she becomes very anxious and worries excessively about her son who started driving. Complains of inability to control worry, racing thoughts at night with insomnia, irritability/agitation, and panic symptoms occasionally with feeling flushed. Patient has not been treated for anxiety in the past or been to counseling. Was seen by [facility] after having mirena placed and they started her on Wellbutrin. Past medical history, appointments, medications, allergies reviewed. Previous Medical History PAST MEDICAL HISTORY Diagnosis Date - Breast pain 04/04/12 - hyperthyroidism - Insomnia, unspecified - Other abnormal glucose Previous Surgical History PAST SURGICAL HISTORY Procedure Laterality Date - BX BREAST PERC NEED W/GUID 04/12/12 Right 6 oclock. 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 - PAST SURGICAL HISTORY OF 2004 Ankle Surgery - THYROIDECTOMY 2008 [facility] Family History FAMILY HISTORY Problem Relation Age of Onset - Diabetes Mother - Lipids Father - Colon Cancer Paternal Grandfather 70 - Heart Paternal Grandmother pacer - Heart Paternal Uncle 50 pacer - Breast Cancer Paternal Aunt 30 30-40 - Diabetes Father Patient Allergies ALLERGIES No Known Allergies Current Medications Current Outpatient Prescriptions on File Prior to Visit: fluticasone (FLONASE) 50 mcg/actuation nasal spray Use 2 Sprays in each nostril once daily. Rinse mouth after use. levothyroxine (LEVOXYL) 125 mcg tablet Take 1 tablet by mouth once daily. COMPOUNDED PRESCRIPTION B/l gel heel splintsDx: 1. Heel pain ibuprofen (MOTRIN) 600 mg tablet Take 1 tablet by mouth every 8 hours as needed for Pain. Phentermine HCl 37.5 mg capsule Take 1 capsule by mouth once daily. No current facility-administered medications on file prior to visit. 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 PSYCH: Posture and motor behavior: normal posture and motor behavior Dress, grooming, personal hygiene: normal dress and grooming Facial expression: good eye contact Speech: normal speech Mood: anxious Coherency and relevance of thought: normal thought processes Memory: normal memory Health Maintenance List TETANUS due on 1988 MAMMOGRAM due on 2017 INFLUENZA(1) due on 07/20/2017 PAP EVERY 5 YEARS due on 11/19/2017 HPV EVERY 5 YEARS due on 11/19/2017 ASSESSMENT/PLAN: 1. LIZ (generalized anxiety disorder) - ICD9: 300.02, ICD10: F41.1 (primary diagnosis) Start SSRI, will give vistaril for panic symptoms/insomnia, and refer to counseling. Obtain blood work to rule out uncontrolled thyroid. Will call with results and see back in 2-3 months for establish visit. - SERTRALINE 50 MG TABLET - HYDROXYZINE PAMOATE 25 MG CAPSULE - CONSULT TO PSYCHOLOGY - TSH BLD - CBC - COMP METABOLIC PANEL 2. Insomnia, unspecified type - ICD9: 780.52, ICD10: G47.00 See above. - CONSULT TO PSYCHOLOGY - TSH BLD - CBC - COMP METABOLIC PANEL Luis Arroyo MD Referring Provider: SELF [200] Allergies As of Date: 01/31/2018 (No Known Allergies) Date Reviewed: 01/31/2018 Reviewed by: Alyson Ortega LPN - Fully Assessed Primary Visit Diagnosis:LIZ (generalized anxiety disorder) [F41.1] Other Visit Diagnosis:Insomnia, unspecified type [G47.00] Order(s):sertraline (ZOLOFT) 50 mg tabletTake 1 tablet by mouth once daily.Disp: 30 tabletRfl: 2 hydrOXYzine pamoate (VISTARIL) 25 mg capsuleTake 1 capsule by mouth three times daily as needed for Anxiety.Disp: 30 capsuleRfl: 0 CONSULT TO PSYCHOLOGY [9036] Order #: [id number]: 1 TSH BLD [SQTSH] Order #: [id number] FUTURE CBC [SQCBC] Order #: [id number] FUTURE COMP METABOLIC PANEL [SQCMP] Order #: [id number] FUTURE Prescriptions as of 01/31/2018 Sig: FLUTICASONE 50 MCG/ACTUATION * Use 2 Sprays in each nostril * LEVOTHYROXINE 125 MCG TABLET Take 1 tablet by mouth once d* COMPOUNDED PRESCRIPTION B/l gel heel splints Dx: 1.* IBUPROFEN 600 MG TABLET Take 1 tablet by mouth every * SERTRALINE 50 MG TABLET Take 1 tablet by mouth once d* HYDROXYZINE PAMOATE 25 MG CAP* Take 1 capsule by mouth three* Problem List As Of Date 01/31/2018 Noted Resolved ABNORMAL GLUCOSE NEC [R73.09] HYPOTHYROIDISM NOS [E03.9] INVALID FOR*03/04/2009 INSOMNIA NOS [G47.00] Postoperative Hypothyroidism [E89.0] INVALID FOR* PALPITATIONS [R00.2] INVALID FOR* GOITER UNSPECIFIED [E04.9] INVALID FOR* Hypopotassemia [E87.6] INVALID FOR* Abnormal mammogram, unspecified [R92.8] INVALID FOR* Elevated cholesterol [E78.00] INVALID FOR* Hypocalcemia [E83.51] INVALID FOR* Prescriptions ordered this encounter Disp Refills Start End SERTRALINE 50 MG TABLET 30 t* 2 01/31/2018 Route: ORAL Sig: Take 1 tablet by mouth once daily. HYDROXYZINE PAMOATE 25 MG CAPSULE 30 c* 0 01/31/2018 Route: ORAL Sig: Take 1 capsule by mouth three times daily as needed for Anxiety. Medications Discontinued During This Encounter Phentermine HCl 37.5 mg capsule 30 c* 0 04/04/2017 01/31/2018 Class: Print RX Route: ORAL Sig: Take 1 capsule by mouth once daily. Disc: Reason for discontinue is not on file. Follow-up and Disposition History Recorded Encounter Status:Closed by LUIS ARROYO MD on 01/31/18 TRANSVAGINAL NON OB Observed: 12/14/2017 Status: F Source: [place] 3:00 PM [facility] REPOSITORY ORIGINAL TRANSVAGINAL NON OB CLINICAL STATEMENT: excessive and irregular menstrual bleeding with regular cycle. Irregular, heavy periods since September 2017. Mirena placed 11/22/2017 COMPARISON: Transvaginal ultrasound, 10/18/2017 FINDINGS: 2-D grayscale and color Doppler sonographic assessment of the uterus and ovaries was performed. The uterus measures 8.7 x 4.3 x 5.9 cm and is mildly heterogeneous in echogenicity. The endometr ial thickness is 6 mm, within normal limits. The intrauterine device appears appropriate in position. There is a 2.2 x 1.9 x 1.9 cm isoechoic myometrial mass within the anterior uterine body, which likely reflects a noncalcified intramural leiomyoma. The right and left ovaries measure 2.7 x 1.9 x 1.6 cm and 2.7 x 2.7 x 3.1 cm, respectively. There is a dominant follicle within the left ovary measuring up to 2.5 cm. Right exophytic ovarian/paraovarian follicle measures 0.8 cm and requires no follow-up. Vascular flow is present to both ovaries, and there are normal spectral waveforms. No pelvic mass or significant pelvic free fluid. IMPRESSION: Satisfactory position of the intrauterine device. Noncalcified 2.2 cm intramural leiomyoma. Normal sonographic assessment of the ovaries. I have personally reviewed the images of this examination and agree with the resident's findings and interpretation. Interpreted By: Juliano Ferguson MD Preliminary Report By: Otf Farrell MD Electronically Signed By: Juliano Ferguson MD Dictated Date: 12/14/2017 4:20:19 PM Prelim Date: 12/14/2017 4:26:25 PM Sign Date: 12/14/2017 4:48:06 PM FINAL SURGICAL Observed: 12/13/2017 Status: F Source: [facility] PATHOLOGY REPORT 1:51 PM [facility] REPOSITORY . Pathology Reports Accession: Collected Date/Time: Received Date/Time: Pathologist: [id number] 12/13/2017 13:51 EST 12/14/2017 13:51 MD CARISA SWIFT Final Surgical Pathology Report DIAGNOSIS: CERVIX, BIOPSY: CLOTTED BLOOD, INFLAMED GRANULATION TISSUE, EXTENSIVE FIBRINOPURULENT DEBRIS AND MINUTE FRAGMENT OF UNREMARKABLE ENDOMETRIUM AND SCAN SMALL FRAGMENTS OF ENDOCERVICAL TISSUE WITH FOCAL TUBAL METAPLASIA. Comment: The majority of the specimen consists of inflamed granulation tissue and abundant fibrinopurulent debris. If this is from a clinically suspicious lesion, additional tissue evaluation may be helpful. COMMENT: [facility] - D# [id number] CLINICAL INFORMATION: EXCESSIVE AND FREQUENT MENSTRUATION WITH IRREGULAR CYCLE SPECIMEN: A CERVIX, BX GROSS DESCRIPTION: _Received in formalin labeled tissue at cervical os post Mirena is about 0.3 5 cc of [place] tissue and blood-tinged mucus. A S -1 Dictated by GABRIEL CRESPO ([facility]) MICROSCOPIC DESCRIPTION: Slides reviewed. Electronically Signed by Pathology Report verified by [facility] Electronically signed by CARISA CACERES MD Sign out Date: 12/17/2017 14:40 Performing Lab: [facility], [address] [place] [address] Performed By: #### SPFR #### [place] [address] ALLERGIES ALLERGIES DATE TYPE / CODE NAME / CODE REACTION SEVERITY SOURCE 10/30/2018 Drug No Known Unknown [facility] Allergy/416 Allergies/G19263 Hospital 347633(SNOM 0388(RXNORM) Repository ED CT) Drug NO KNOWN [facility] Class/92454 ALLERGIES [place] 1003(SNOMED Repository CT) ENCOUNTERS ENCOUNTERS ADMIT/DISCHARGE ACCOUNT NUMBER ADMITTING ENCOUNTER LOCATION SOURCE CLASS 11/29/2018/12/02/19 [id number] Ambulatory [address] [place] Repository 11/04/2018/11/04/20 [id number] Ambulatory [place] [facility] [place] Repository 10/30/2018/10/30/20 [id number] Emergency [address] ding:ED Repository 10/29/2018/10/30/20 [id number] Ambulatory [place] [facility] [place] Repository 10/29/2018/10/29/20 [id number] Ambulatory [place] [facility] [place] Repository 10/23/2018/10/23/20 [id number] Ambulatory [place] [facility] [place] Repository 10/23/2018/11/11/20 [id number] Ambulatory [place] [facility] [place] Repository 01/31/2018 [id number] [facility] [place] [facility] 01/31/2018/02/02/20 [id number] Ambulatory [place] [facility] [place] Repository 12/14/2017/12/14/19 [id number] Ambulatory [address] ding:[facility] Repository 12/13/2017 [id number] Ambulatory BBuilding:DR Sanchez [facility] Repository PAYERS PAYERS ENCOUNTER GUARANTOR PAYER SUBSCRIBER SOURCE 10/30/2018 BAY [id number] Primary BAY CELESTINOB: Navjot TAI Insurance:MEDICAL [id number] [facility] [address]Jby: (330) Number: Repository [phone] () [id number] e Date:[id number] [address] [address]DK: 10/30/2018 Secondary NOT GIVENUNK [place] Insurance:SELF PAY [facility] Number: Effective Repository Date:2018-10-30 12/14/2017 JORDANA LEMONDOB: Primary BAY CELESTINOB: [facility] [id number] Insurance:[facility] [id number] [place] [address] [id number] Number: [place] [facility] [facility] [id number] [place], [place] [address]Bwg: (330) Date:2017-06-02 [place] [address]Cnw: (HP) [id number] [phone] (HP)Tel: Name:[facility] [address] [place] [address] () [address]YI: 12/13/2017 JORDANA LEMONDOB: Primary BAY SEYMOURONDOB: [facility] [id number] Insurance:[facility] [id number] [facility] G85Uabryo Number: [place] Repository [facility], [id number] [place], [place] [address]Fmd: (330) Date:2017-12-13 [place] [address]Lob: (HP) [id number] [phone] (HP)Tel: Name:[facility] [address] [place] [address] (WP) [phone]:
== END 2018-10-30 14:13 | disposition home or self-care (01) ==
PROVIDERS: Emergency Provider Emergency Medicine; Family Provider Family Medicine; PCP Family Medicine
DX: E89.2 Postprocedural hypoparathyroidism (principal)
CPT/HCPCS: 82306; 96365; 99282; J7040; A4216; J0610

== ENCOUNTER 2020-10-13 15:30 | Emergency (ER) | payer OTHER, SELFPAY ==
[2020-10-13 15:31] VITALS: BP 128/73; PULSE 88; RESP 15; TEMP 35.8; O2SAT 100; BMI 27.4
--- NOTE | 2020-10-13 15:51 | EKG12_ITS ---
Test Reason : Blood Pressure : / mmHG Vent. Rate : 069 BPM Atrial Rate : 069 BPM P-R Int : 144 ms QRS Dur : 076 ms QT Int : 454 ms P-R-T Axes : 036 007 007 degrees QTc Int : 486 ms Normal sinus rhythm Prolonged QT Abnormal ECG Confirmed by HAKEEM DEVINE MD ([id number]), school photograph editor MAYRA NIELSEN ([id number]) on 10/15/2020 11:07:23 AM Referred By: BASHIR Confirmed By:HAKEEM DEVINE MD
--- NOTE | 2020-10-13 16:03 | ED.VIS.GEN ---
History of Present Illness Chief Complaint: Abn Labs Narrative: This patient is a 45-year-old female who was sent by their primary care physician due to hypocalcemia. Patient has a history of hypothyroidism with thyroidectomy. One of her parathyroids was removed. She is also had problems with hypoparathyroidism. She was developing some muscle spasms in her hands. She had outpatient blood work. She was sent in today due to reported severe hypocalcemia/hypoparathyroidism with tetany and prolonged QT on EKG. It was requested that the patient be given an IV infusion and then follow-up with endocrinology. Patient otherwise denies recent illness. No fevers chest pain shortness of breath vomiting diarrhea. Past Medical History - Allergies and Home Meds Allergies/Adverse Reactions: Allergies No Known Allergies Allergy (Verified 10/13/20 15:34) Primary Care Physician: Kimani Arroyo MD [Primary Care Provider] - Past Medical History: - - Hypothyroidism, hypoparathyroidism Smoking Status: Never smoker Review of Systems All systems negative except as indicated General: Denies: Fever Eyes: Denies: Visual changes - bilaterally ENT: Denies: Bilateral ear pain Cardiovascular: Denies: Chest pain Respiratory: Denies: Dyspnea Gastrointestinal: Denies: Nausea, Vomiting, Diarrhea Musculoskeletal: Reports: - - Muscle spasms Skin: Denies: Rash Neurological: Denies: Headache Physical Exam Vital Signs/Narrative: Vital Signs Temp Pulse Resp BP Pulse Ox 10/13/20 15:31 96.4 F L 88 15 128/73 H 100 Inital Vital Signs reviewed: Yes General: Well nourished, Well developed Head: Normocephalic Eyes: EOMI ENT: Moist mucous membranes Neck: Supple Cardiovascular: Regular rate, Regular rhythm Respiratory: No distress, CTA bilaterally Abdomen: Soft, Nontender Skin: Normal color Neurological: Alert, - - No focal or lateralizing neurological deficit, normal reflexes, negative Chvostek sign, no tetany Psychological: Normal affect Diagnostic/Tx/Re-eval Laboratory Results 10/13/20 10/13/20 16:00 16:00 WBC 11.3 H RBC 4.60 Hgb 12.4 Hct 39.7 MCV 86.3 MCH 27.0 MCHC 31.2 L RDW Std Deviation 47.6 H RDW Coeff of Tye 14.9 H Plt Count 341 MPV 10.3 Immature Gran % (Auto) 0.300 Neut % (Auto) 75.2 H Lymph % (Auto) 19.7 [place] % (Auto) 3.7 Eos % (Auto) 1.0 Baso % (Auto) 0.1 Absolute Neuts (auto) 8.5 H Absolute Lymphs (auto) 2.22 Nucleated RBC % 0 Sodium 139 Potassium 3.2 L Chloride 103 Carbon Dioxide 31.0 Anion Gap 5 BUN 12 Creatinine 0.85 Estim Creat Clear Calc 76.79 Est GFR (MDRD) Af Amer 94 Est GFR (MDRD) Non-Af 78 BUN/Creatinine Ratio 14.2 Glucose 86 Calcium 7.1 L TSH 0.24 L - Medical Decision Making EKG shows normal sinus rhythm, QTC 486. Labs returned notable for serum calcium of 7.1, TSH is 0.24. Patient was given IV calcium gluconate. Patient will follow up with her primary care physician with plan for endocrinology follow-up. Patient discharged. ED Disposition - Plan for ED Patient: Disposition: Home or Assisted Living Diagnosis: Hypocalcemia, Hypothyroid, Hypokalemia Instructions: ED Hypocalcemia, ED Potassium Deficiency, ED Hypothyroidism Referrals: Kimani Arroyo MD [Primary Care Provider] -
[2020-10-13 16:30] LABS: Absolute Lymphocyte Count 2.22 X10^3/uL (0.83-4.51); Absolute Neutrophil Count 8.5 X10^3/uL (2.0-7.7); Basophil# 0.01 X10^3/uL; Basophil% 0.1 % (0-1); Eosinophil# 0.11 X10^3/uL; Hematocrit 39.7 % (37-47); Hemoglobin 12.4 g/dL (12.0-15.0); Lymphocyte # 2.22 X10^3/ul (4.0); Lymphocyte % 19.7 % (19-41); Mean Corp Hgb Conc 31.2 g/dL (32-36); Mean Corpuscular Volume 86.3 fL (81-99); Mean Platelet Vol. 10.3 fl (6.2-12.0); Monocyte# 0.42 X10^3/uL; Monocyte% 3.7 % (0-10); NRBC Flagged by Analyzer 0 % (0-5); Neutrophil % 75.2 % (47-70); Platelet Count 341 K/mm3 (150-450); RBC Distribution Width CV 14.9 % (11.6-14.6); RBC Distribution Width SD 47.6 fl (35.1-43.9); White Blood Count 11.3 K/mm3 (4.4-11.0)
[2020-10-13 16:52] LABS: Anion Gap 5 (5-15); BUN 12 mg/dL (7-18); BUN/Creat Ratio 14.2 RATIO (10-20); Calcium,Total 7.1 mg/dL (8.5-10.1); Chloride 103 mmol/L (98-107); Creatinine, Serum 0.85 mg/dL (0.55-1.02); EST Glomerular Filtration Rate 78 mL/min (>60); Est Glom Filt Rate - Afr Amer 94 mL/min (>60); Estimated Creatinine Clearance 76.79 ml/min; Glucose 86 mg/dL (74-106); Potassium 3.2 mmol/L (3.5-5.1); Sodium Level 139 mmol/L (136-145); Thyroid Stim Hormone (TSH) 0.24 uIU/mL (0.358-3.74)
[2020-10-13] MEDS: Calcium Gluconate 1 GM/10 ML Vial IV (17:38)
[2020-10-13 17:43] VITALS: BP 118/71; PULSE 70; RESP 16; O2SAT 98
== END 2020-10-13 18:07 | disposition home or self-care (01) ==
PROVIDERS: Emergency Provider Emergency Medicine; PCP Family Medicine
DX: E83.51 Hypocalcemia (principal); E03.9 Hypothyroidism, unspecified; E87.6 Hypokalemia
CPT/HCPCS: 80048; 82330; 84443; 85025; 93005; 96374; 99283; J7050; A4216; J0610

== ENCOUNTER 2022-02-27 14:35 | Outpatient (CLI) | payer OTHER, SELFPAY ==
--- NOTE | 2022-02-27 14:42 | CT_ITS ---
STUDY: CT MAXILLOFACIAL SINUSES REASON FOR EXAM: Female, 46 years old. SINUSITIS RADIATION DOSAGE (If Supplied By Facility): CTDIvol = ( 33.06 ) mGy, DLP = ( 788.40 ) mGycm TECHNIQUE: The patient was scanned in a multi detector CT scanner. High resolution axial imaging was performed without the administration of intravenous contrast material. Sagittal and coronal images were reconstructed. Individualized dose optimization techniques were used for this CT. COMPARISON: None. FINDINGS: Scattered small bilateral cervical lymph nodes. FRONTAL SINUSES: Normal aeration, without mucosal inflammatory disease. ETHMOIDAL SINUSES: Normal aeration, without mucosal inflammatory disease. MAXILLARY SINUSES: There is opacification of the left maxillary sinus. SPHENOIDAL SINUSES: Normal aeration, without mucosal inflammatory disease. There is obliteration of the left ostiomeatal complex due to the mucosal hypertrophy. Normal bilateral middle turbinates. There is hypertrophy of the left inferior nasal turbinate. Normal midline nasal septum. There is patency of the bilateral nasal airways. The visualized osseous structures are normal. The visualized bilateral orbital contents are normal. CT/Sinus/Facial Bone IMPRESSION: There is opacification of the left maxillary sinus with obliteration of the left ostiomeatal complex unit due to mucosal hypertrophy. There is hypertrophy of the inferior turbinate in the left nasal fossa. Electronically Signed: Bronson Tilley MD at 9:31 EDT ,
== END 2022-02-27 23:59 | disposition home or self-care (01) ==
LOC: CT 14:39
PROVIDERS: PCP Family Medicine; Visit Provider Otolaryngology Otolaryngology/Facial Plastic Surgery
DX: J32.8 Other chronic sinusitis (principal)
CPT/HCPCS: 70486

== ENCOUNTER 2022-10-04 12:24 | Emergency (ER) | payer OTHER, SELFPAY ==
[2022-10-04] VITALS (9 sets, daily range): BP systolic 99–124; BP diastolic 61–88; PULSE 100–113; RESP 14–22; TEMP 36.6; O2SAT 98–100; BMI 31.6
--- NOTE | 2022-10-04 12:30 | RAD_ITS ---
STUDY: X-RAY - RIGHT SHOULDER REASON FOR EXAM: Female, 47 years old. Acute pain after trauma TECHNIQUE: 2 view(s) of the shoulder. COMPARISON: None. FINDINGS: Normal glenohumeral articulation. Normal acromioclavicular joint. Normal acromion. Normal humeral head and visualized proximal humerus. The soft tissue structures are unremarkable. Normal visualized pulmonary apex. RAD/Shoulder min 2 Views IMPRESSION: Normal x-ray examination of the shoulder. Electronically Signed: Eric Murphy MD at 13:00 EST ,
--- NOTE | 2022-10-04 12:30 | RAD_ITS ---
STUDY: X-RAY - RIGHT HUMERUS REASON FOR EXAM: Female, 47 years old. Acute pain after trauma TECHNIQUE: 3 view(s) of the humerus. COMPARISON: None. FINDINGS: There is an acute, minimally displaced multi fragmented spiral fracture in the midshaft of the humerus with associated soft tissue swelling. The distal fracture fragment is displaced posteriorly by one half width of the humerus and there is a butterfly fracture fragment as well. Orthopedic surgery consultation recommended. Anatomic alignment of the glenohumeral and elbow joints. RAD/Humerus min 2 Views IMPRESSION: Acute, comminuted, multi fragmented spiral fracture in the midshaft of the humerus with soft tissue swelling Electronically Signed: Eric Murphy MD at 13:00 EST ,
[2022-10-04] MEDS: Morphine 4 MG/ML Syringe IV ×2 (13:47→15:09)
[2022-10-04] MEDS: Ondansetron 4 MG/2 ML Vial IV (13:47)
--- NOTE | 2022-10-04 14:25 | ED.RN ---
THIS RN SPOKE WITH FRANCISCO OGDEN FROM [facility] p([phone]). PER FRANCISCO LATIF COMP HAS NOT HAPPENED IN THEIR QUAKER BEFORE. HE REPORTS HE WILL CALL THIS RN BACK WITH AN ANSWER IN REGARDS TO IF PT REQUIRES A DRUG SCREEN.
--- NOTE | 2022-10-04 15:05 | RAD_ITS ---
STUDY: X-RAY - RIGHT KNEE REASON FOR EXAM: Female, 47 years old. Pain after trauma TECHNIQUE: 4 view(s) of the knee. COMPARISON: None. FINDINGS: Normal visualized distal femur. Normal visualized proximal tibia and fibula. Normal proximal tibiofibular articulation. Normal medial femorotibial compartment. Normal lateral femorotibial compartment. Normal patellofemoral articulation. The soft tissue structures are unremarkable. RAD/Knee 4 or More Views IMPRESSION: Normal x-ray examination of the knee. Electronically Signed: Eric Murphy MD at 15:33 EST ,
--- NOTE | 2022-10-04 15:05 | ED.VIS.FALL ---
HPI HPI - Fall History of Present Illness Chief Complaint: Fall Informant: patient Narrative Narrative: Patient slipped and fell on steps at work. She was carrying garbage and just misstepped. She was up about 5 steps when this happened. There is a door at the bottom of the steps. She did hit her head on the door but her head is not hurting she never lost consciousness and she is not on blood thinners. She has no neck pain. Patient's primary complaint is her right arm pain. It radiates a little bit up toward the shoulder but is primarily mid humeral. She has no numbness or tingling distally. She states her knees are a little bit sore because she hit them but she is able to walk on them. Any motion or palpation of the arm worsens it. Sling did make it better. PFSH [facility] Medical History Hypothyroid Home Medications levothyroxine 125 mcg tablet 137 mcg PO DAILY 12/21/16 [History Last Taken 10/13/20] oxycodone-acetaminophen 5 mg-325 mg tablet (Percocet) 1 tab PO Q6H PRN pain 5 days #20 tabs 10/04/22 [Rx Last Taken Unknown] Allergy/AdvReac Type Severity Reaction Status Date / Time No Known Allergies Allergy Verified 10/04/22 12:28 Social History Smoking Status: Never smoker ROS ROS ED Constitutional Constitutional ED: Denies fever(s) Eyes Eyes: Denies blurry vision, change in vision or diplopia Cardiovascular Cardiovascular: Denies chest pain or palpitations Respiratory/Chest Respiratory/Chest: Denies cough or dyspnea Gastrointestinal Gastrointestinal: Denies nausea or vomiting Genitourinary Genitourinary ED: Denies hematuria Musculoskeletal Musculoskeletal: Reports arthralgias; Denies neck pain Integumentary Denies Abrasions or rash Neurologic Neurologic: Denies headache(s), paresthesias or weakness Endocrine Endocrinology: Denies polydipsia or polyuria Hematologic/Lymphatic Hematologic/Lymphatic: Denies easy bleeding or easy bruising Allergic/Immunologic Allergic/Immunologic ED: Denies urticaria EXAM Physical Exam Const Vital Signs: 10/04/22 12:24 10/04/22 13:43 10/04/22 16:12 Temperature 98 F Temperature Source Temporal Pulse Rate 107 H 111 H Pulse Rate [1 (Initial Baseline)] Pulse Rate [2] Respiratory Rate 16 14 Respiratory Rate [1 (Initial Baseline)] Respiratory Rate [2] Respiratory Effort Normal Non-Labored Respiratory Depth Normal Respiratory Pattern Normal Blood Pressure 124/88 H 112/74 Blood Pressure [1 (Initial Baseline)] Blood Pressure [2] Blood Pressure Mean 100 Pulse Ox 100 100 100 Oxygen Delivery Method Room Air Room Air Room Air Oxygen Delivery Method [1 (Initial Baseline)] Oxygen Delivery Method [2] Oxygen Flow Rate (L/min) Oxygen Flow Rate (L/min) [1 (Initial Baseline)] Oxygen Flow Rate (L/min) [2] 10/04/22 16:48 10/04/22 17:01 10/04/22 17:02 Temperature Temperature Source Pulse Rate 106 H Pulse Rate [1 (Initial Baseline)] 113 H Pulse Rate [2] 110 H Respiratory Rate 16 Respiratory Rate [1 (Initial Baseline)] 16 Respiratory Rate [2] 22 H Respiratory Effort Respiratory Depth Respiratory Pattern Blood Pressure Blood Pressure [1 (Initial Baseline)] 107/61 Blood Pressure [2] 102/63 Blood Pressure Mean Pulse Ox 100 Oxygen Delivery Method Nasal Cannula Nasal Cannula Oxygen Delivery Method [1 (Initial Baseline)] Nasal Cannula Oxygen Delivery Method [2] Nasal Cannula Oxygen Flow Rate (L/min) 4 4 Oxygen Flow Rate (L/min) [1 (Initial Baseline)] 4 Oxygen Flow Rate (L/min) [2] 4 10/04/22 17:06 Temperature Temperature Source Pulse Rate Pulse Rate [1 (Initial Baseline)] Pulse Rate [2] Respiratory Rate Respiratory Rate [1 (Initial Baseline)] Respiratory Rate [2] Respiratory Effort Respiratory Depth Respiratory Pattern Blood Pressure Blood Pressure [1 (Initial Baseline)] Blood Pressure [2] Blood Pressure Mean Pulse Ox Oxygen Delivery Method Room Air Oxygen Delivery Method [1 (Initial Baseline)] Oxygen Delivery Method [2] Oxygen Flow Rate (L/min) Oxygen Flow Rate (L/min) [1 (Initial Baseline)] Oxygen Flow Rate (L/min) [2] Positive well nourished and well developed General Appearance ED: well developed HEENT HEENT Narrative: There may be some minimal erythema of the forehead. But no step-off. No real tenderness. Negative for tenderness Eyes EOMs intact bilaterally Neck full ROM and no lymphadenopathy General: Negative for tenderness Chest Wall inspection of chest normal and palpation of chest normal Resp normal respiratory effort and clear to auscultation bilaterally Auscultation: Negative for rales, rhonchi or wheezes Cardio regular rate, regular rhythm and no murmurs GI non-tender and non-distended Palpation: soft Back/Spine no CVA tenderness Neuro oriented x3, no focal motor deficits and no sensory deficits noted Neuro Narrative: No weakness numbness tingling down at her hands or fingers. Distal pulses and capillary refill are intact. Psych mental status grossly normal Skin Lesions: no lesions Rashes: no rashes MDM MDM MDM Narrative Medical decision making narrative: X-rays verify midshaft fracture on the right. She was treated with meds for pain. This was helping quite a bit. No numbness or tingling develop. I discussed the case with orthopedic surgeon, Dr. Saúl Sellers. We will put her in a coaptation splint and have her follow-up. Procedure: Procedural sedation and splint placement I discussed risk benefits options with the patient. She has not eaten today. Mallampati of 1. No history of anesthesia or major respiratory issues. She was sedated with a total of 100 mg of propofol giving her 40, 40, 20 mg. She was kept on oxygen and end-tidal CO2 monitoring. She did well the entire time. She was placed in a coaptation splint holding stability of the arm the entire time. She was then was placed in a sling. She tolerated this quite well woke up. [employer] strength sensation are all intact still. Radiography Diagnostic Testing: Clinical Impression(s) from Imaging Studies Humerus X-Ray 10/04/22 12:30 IMPRESSION: Acute, comminuted, multi fragmented spiral fracture in the midshaft of the humerus with soft tissue swelling Electronically Signed: Eric Murphy MD at 13:00 EST , Shoulder X-Ray 10/04/22 12:30 IMPRESSION: Normal x-ray examination of the shoulder. Electronically Signed: Eric Murphy MD at 13:00 EST , Knee X-Ray 10/04/22 15:05 IMPRESSION: Normal x-ray examination of the knee. Electronically Signed: Eric Murphy MD at 15:33 EST , Knee X-Ray 10/04/22 15:20 IMPRESSION: Normal x-ray examination of the knee. Electronically Signed: Eric Murphy MD at 15:32 EST , X-rays of the right humerus right shoulder bilateral knees show normal other than midshaft fracture of the humerus on the right. Procedures Upper Extremity Splints Upper Extremity Splint: Orthoglass Splint Fabrication: Fabricated Location: Right (See [facility] for details) Discharge Plan Triage Chief Complaint: Fall ED Provider: Delvis Garza Dx/Rx/DC Orders Clinical Impression: Closed right humeral fracture, Fall down steps, Contusion of knee Instructions: Understanding a Humerus Fracture Prescriptions: New oxycodone-acetaminophen [Percocet] 5-325 mg tablet 1 tab PO Q6H PRN (Reason: pain) 5 Days Qty: 20 0RF No Action levothyroxine 125 MCG tablet 137 mcg PO DAILY Primary Care Provider: Júnior Valdivia Referrals: Júnior Valdivia DO [Primary Care Provider] - Saúl Sellers MD [Med Staff - Active Staff] - As soon as possible (Call in the morning for an appointment as soon as possible.) Disposition Disposition: Home, Self Care
--- NOTE | 2022-10-04 15:20 | RAD_ITS ---
STUDY: X-RAY - LEFT KNEE REASON FOR EXAM: Female, 47 years old. Pain after trauma TECHNIQUE: 4 view(s) of the knee. COMPARISON: None. FINDINGS: Normal visualized distal femur. Normal visualized proximal tibia and fibula. Normal proximal tibiofibular articulation. Normal medial femorotibial compartment. Normal lateral femorotibial compartment. Normal patellofemoral articulation. The soft tissue structures are unremarkable. RAD/Knee 4 or More Views IMPRESSION: Normal x-ray examination of the knee. Electronically Signed: Eric Murphy MD at 15:32 EST ,
[2022-10-04] MEDS: Propofol 200 MG/20 ML Vial IV BOLUS (17:03)
== END 2022-10-04 18:23 | disposition home or self-care (01) ==
PROVIDERS: Emergency Provider Emergency Medicine; PCP Student in an Organized Health Care Education/Training Program; Visit Provider Emergency Medicine
DX: S42.301A Unspecified fracture of shaft of humerus, right arm, initial encounter for closed fracture (principal); S80.01XA Contusion of right knee, initial encounter; S80.02XA Contusion of left knee, initial encounter; W10.9XXA Fall (on) (from) unspecified stairs and steps, initial encounter; Z79.899 Other long term (current) drug therapy
CPT/HCPCS: 73030; 73060; 73564; 96374; 96375; 96376; 99152; 99285; A4216; J2405

== ENCOUNTER → 2022-11-15 | Outpatient (CLI) | payer OTHER, SELFPAY ==
--- NOTE | 2022-11-15 15:54 | VDUE_ITS ---
Reason For Study: Swelling Right Proximal Right jugular vein is spontaneous, widely patent, phasic, with no intraluminal echogenicity noted. Right subclavian vein is spontaneous and patent with no intraluminal echogenicity noted. Continuous flow noted. Right Lower Arm Right radial vein is compressible. Unable to visualize due to patient immobility/recent humerus fracture. Right Arm Right axillary vein is spontaneous and patent with continuous flow noted. Unable to show compressibility due to patient immobility and intolerance to compressions. Unable to visualize due to patient immobility/recent humerus fracture. Right cephalic vein is compressible below AC. Unable to visualize above AC due to patient immobility/recent humerus fracture. Unable to visualize due to patient immobility/recent humerus fracture. Technically difficult study. Limited views obtained. VL/Venous Duplex US, Unilateral Interpretation Summary Technically limited examination secondary to recent humerus fracture No evidence for acute deep venous thrombosis right internal jugular and subclav yifan veins. Right axillary vein interrogated with Color Doppler Limited inspection of the right radial and cephalic veins. Ordering Physician: Saúl Sellers Referring Physician: Júnior Valdivia Performed By: Mark Anthony Maloney RVT ???
== END | disposition home or self-care (01) ==
LOC: CVS 15:51
PROVIDERS: PCP Student in an Organized Health Care Education/Training Program; Referring Provider Orthopaedic Surgery; Visit Provider Orthopaedic Surgery
DX: S42.309A Unspecified fracture of shaft of humerus, unspecified arm, initial encounter for closed fracture (principal); R22.31 Localized swelling, mass and lump, right upper limb; S42.341A Displaced spiral fracture of shaft of humerus, right arm, initial encounter for closed fracture
CPT/HCPCS: 93971

== ENCOUNTER → 2023-01-29 | Outpatient (CLI) | payer OTHER, SELFPAY ==
--- NOTE | 2023-01-29 17:30 | CT_ITS ---
EXAM: CT RIGHT UPPER EXTREMITY WITHOUT INTRAVENOUS CONTRAST CLINICAL INDICATION: DISPLACED RT HUMERUS FX TECHNIQUE: Helically acquired images were obtained of the right upper extremity without intravenous contrast. 2-D reformats were performed by the technologist. CTDIvol = ( 29.29 ) mGy, DLP = ( 1143.80 ) mGycm This CT exam was performed using one or more of the following dose reduction techniques: automated exposure control, adjustment of the mA and/or kV according to patient size, and/or use of iterative reconstruction technique. This report was created using Whatever report [employer] technology. COMPARISON: None. FINDINGS: BONES/JOINTS: Incompletely healed/healing fracture involving the distal shaft of the right humerus with callus formation demonstrated. Preservation of the joint space. No other acute or healing fracture or malalignment. No other unusual lytic or sclerotic lesions of bone. SOFT TISSUES: Soft tissues are normal. No soft tissue swelling or gas. No radiopaque foreign body. CT/Extremity Upper without Contra IMPRESSION: Incompletely healed/healing fracture involving the distal shaft of the right humerus with callus formation demonstrated. Electronically Signed: Jb Pinto MD at 2:37 EDT ,
== END | disposition home or self-care (01) ==
LOC: CT 17:29
PROVIDERS: PCP Student in an Organized Health Care Education/Training Program; Visit Provider Orthopaedic Surgery
DX: S42.341A Displaced spiral fracture of shaft of humerus, right arm, initial encounter for closed fracture (principal)
CPT/HCPCS: 73200

== ENCOUNTER → 2023-06-27 | Outpatient (CLI) | payer OTHER, SELFPAY ==
--- NOTE | 2023-06-27 10:00 | MRI_ITS ---
STUDY: MRI RIGHT SHOULDER REASON FOR EXAM: Female, 47 years old. Pain. Evaluate for adhesive capsulitis. TECHNIQUE: Standardized fat and water weighted pulse sequences were obtained in all 3 orthogonal planes. COMPARISON: Right shoulder x-rays dated September 2022. FINDINGS: Supraspinatus tendinosis with a partial bursal surface tear of the mid fibers measuring 5 mm in diameter and occupying approximately 80% of the tendon thickness (coronal series 6 images 7-11). Infraspinatus tendinosis with thickening and increased signal intensity without a partial or full-thickness tear (coronal series 6 images 10-13). Subscapularis tendinosis with thickening of the upper fibers with articular surface fraying and thinning/attenuation of the lower fibers. No partial thickness or full thickness tear (axial series 3 images 9-15). Normal teres minor tendon. Normal supraspinatus muscle. Normal infraspinatus muscle. Normal subscapularis muscle. Normal teres minor muscle. Mild thinning of the articular cartilage of the glenohumeral joint with a small glenohumeral joint effusion (axial series 3 images 9-14). Normal humeral head and visualized proximal humerus. Normal biceps labral complex. Normal intracapsular long biceps tendon. Nondisplaced superior labral tear (coronal series 6 images 8-11). Normal capsulo- ligamentous complex. Normal rotator interval. Bone marrow edema in the distal clavicle and adjacent acromion. AC joint hypertrophy with narrowing of the subacromial space (coronal series 6 images 8-13). There is a Type II morphology (curved), with a neutral orientation. Minimal amount of subacromial-subdeltoid bursal fluid (coronal series 6 image 8). Normal visualized coracohumeral and coracoacromial ligaments. Normal quadrilateral space. Normal axillary space. Normal deltoid muscle. Normal trapezius muscle. MRI/Upper Ext Joint Only(Routine) IMPRESSION: Supraspinatus tendinosis with a partial bursal surface tear of the mid fibers measuring 5 mm in diameter and occupying approximately 80% of the tendon thickness. Infraspinatus and subscapularis tendinosis as described. Mild arthrosis of the glenohumeral joint. Nondisplaced superior labral tear. Small glenohumeral joint effusion with a small amount of fluid in the subacromial-subdeltoid bursa. Electronically Signed: Trent Lawrence MD at 15:10 EDT ,
== END | disposition home or self-care (01) ==
LOC: MRI 09:25
PROVIDERS: PCP Student in an Organized Health Care Education/Training Program; Referring Provider Orthopaedic Surgery; Visit Provider Orthopaedic Surgery
DX: M75.01 Adhesive capsulitis of right shoulder (principal)
CPT/HCPCS: 73221

== ENCOUNTER 2024-02-08 13:00 | Outpatient (RCR) | payer SELFPAY | END 2024-02-08 19:00 | disposition home or self-care (01) | LOC: PT 13:00 | PROVIDERS: PCP Student in an Organized Health Care Education/Training Program | DX: M54.2 Cervicalgia (principal) ==

== ENCOUNTER 2025-08-04 06:35 | Outpatient (RCR) | payer OTHER, SELFPAY ==
--- NOTE | 2025-08-04 08:27 | HP.OTFCE_ITS ---
Task Lift Floor (Occasional 1-33% of Day): 20 Floor (Frequent 34-66% of Day): 10 Floor (Constant 67-100% of Day): 4.21 Floor PDL: Light Knee (Occasional 1-33% of Day): 20 Knee (Frequent 34-66% of Day): 10 Knee (Constant 67-100% of Day): 4.21 Knee PDL: Light Waist (Occasional 1-33% of Day): 25 Waist (Frequent 34-66% of Day): 12.5 Waist (Constant 67-100% of Day): 5.2 Waist PDL: Light Shoulder (Occasional 1-33% of Day): 15 Shoulder (Frequent 34-66% of Day): 7.5 Shoulder (Constant 67-100% of Day): 3.1 Shoulder PDL: Sedentary-Light Overhead (Occasional 1-33% of Day): 15 Overhead (Frequent 34-66% of Day): 7.5 Overhead (Constant 67-100% of Day): 3.1 Overhead PDL: Sedentary-Light Comments: pt scores as "light" in floor lift knee lift and waist lift then scores as "sedentary-light" in shoulder as well as overhead lift Work Activity/Posture Bending: Frequent Ability (34-66% of day) Squatting: Frequent Ability (34-66% of day) Kneeling: Frequent Ability (34-66% of day) Reaching out: Frequent Ability (34-66% of day) Reaching up: Frequent Ability (34-66% of day) Sitting: Constant Ability (67-100% of day) Walking: Frequent Ability (34-66% of day) Standing: Frequent Ability (34-66% of day) Reference Reference: Duration Sedentary Sedentary Light Light Light Medium Medium Medium Heavy Very Heavy Heavy Occasional (0-33% of day) Frequent (34-66% of day) Constant (67-100% of day) 10 # Negligible Negligible 15 # 8 # Negligible 20 # 10# Negli. 35 # 18 # 7 # 50 # 25 # 10 # 75 # 100 # >100 # 38 # 50 # >50 # 15 # 20 # >20 # Patient Information Height: 5 ft 5 in Weight:: 72.575 kg Hand Dominance: R Medical History Medical History Including Restrictions: This 50 year old female arrives with dx of neck muscle spasm, chronic neck pain cervical disc disease as well as chronic R shoulder pain. Per pt pain started after fall Sep 2022 breaking humerus torn rotator cuff and herniated x2 cervical discs. Had rotator cuff repair as well as bicep re attachment. when happened. After 5 months of humerus not healing she had plate and screws put in. surgery in dec with x2 artificial disc placed. Pt has done physical therapy for shoulder and neck since accident. Has also tried dry needling. Pt also started getting massages states temporary relief. Pt with first appointment with pain management this date after FCE 08/04/25. Diagnoses Diagnoses: M62.838- neck muscle spasm M50.90- cervical disc disease M53.82- neck muscle weakness M54.2- chronic neck pain M25.511 chronic R shoulder pain Symptoms Symptoms: pain in neck as well as cervical spine spams in neck after disc replacement pt started having facial paralysis -- neurologist thinks cervical dysphoria pending MRI Pain Pain: neck and shoulder 8/10 most comfortable position sitting with rolled modified pillow between shoulder blades that pt made flexoral for pain occ advil Jerel Pain Questionnaire score 16/78 Work History Work History: unable to work since injury in 2021 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 Pt is I in ADL tasks as well as cooking and light cleaning does receive assistance with heavy cleaning and cooking tasks. drives. Pt bathroom is walk in shower big enough for wheelchair with grab bars no seat. commode is standard. does not use any AD as means of mobility. Physical Examination Physical Examination: HR 105 bpm 02 98% sitting for intake of assessment ROM: B Upper Extremity: L UE WFL R UE slightly limited in ER as well as elbow extension (-15) B Lower Extremity: B WFL Strength: measured using fet peak force: L shoulder flexion: 9# R shoulder flexion: 6.6# L bicep: 21# R bicep: 12.7# L tricep: 16.5# R tricep: 8.8# L ER: 12.8# R ER: 8.2# Lower Extremity: L hip flexion: 25.2# R hip flexion: 19.7# L quad: 22.3# R quad: 18# L hamstrin.8# R hamstrin.5# Right Maintenance Department Technician Strength Average: 23.33 Right Maintenance Department Technician Strength Percentile: <.2 percentile Left Maintenance Department Technician Strength Average: 41.66 Left Maintenance Department Technician Strength Percentile: 6th percentile Right Lateral Pinch Average: 8.33 Right Lateral Pinch Percentile: <10th percentile Left Lateral Pinch Average: 8.00 Left Lateral Pinch Percentile: 10th percentile Right Tripod Pinch Average: 8.00 Right Tripod Pinch Percentile: 10th percentile Left Tripod Pinch Average: 10.00 Left Tripod Pinch Percentile: 25th percentile Sensation: denies numbness or tingling since disc replacement . Fine Motor: 9 hole peg assessment: L hand: trial 1: 30 sec trial 2: 28 sec trial 3: 27 sec L hand average: 28.33 indicating pt in 0th percentile for age and gender R hand: trial 1: 27 sec trial 2: 26 sec trial 3: 26 sec R hand average: 26.3 indicating pt in 0th percentile for age and gender Balance: standing forward reach score 12" a score of 10" or more indicates pt is low risk for falls Non Material Handling Activities Bending: bending: trial of 3: 33 10x at own pace: 08/28 10x fast: 08/28 pain 8 HR 143 bpm and 02 99% no external support needed during task no LOB bends at waist Squatting: squatting: trial of 3: 33 10x at own pace: 08/28 10x fast: 08/28 HR 96 bpm and 02 99% L UE external support on desk for completion no LOB comes approx half way down and back up Kneeling: kneeling: trial of 3: 3/3 10x at own pace: 08/28 10x fast: 08/28 HR 147 bpm and 02 99% paibn 07/29 LUE external support on desk no LOB able to take knee and come back up comes to knee on R leg Reaching out/up: reaching out: trial of 3: 3/3 10x at own pace: 08/28 10x fast: 08/28 Reaching up: trial pf 3: 33 10x at own pace: 08/28 10x fast: 10 HR 145 bpm and 02 99% R arm starts to lag behind with completion of fast reps pain 9/10 complete in standing Walking: walks x4 laps around facility no need for external support 1,544 feet no LOB able to maintain conversation starts to get tired during mobility task HR 139 bpm and 02 99% per pt she is able to walk approx 45 min before needing to stop due to fatigue does have arm swing with RUE during task Standing: pt is able to stand for 20 min duration during FCE per pt able to stay standing for approx 1 hour before needing RB Sitting: sits for intake of assessment approx 30 min no need for frequent change in posture feet on floor back on back rest pt states she is able to sit for 45 min before needing to move around Climbing Stairs: able to ascent 10 steps alternating feet with L UE support on bar descending step to pattern LUE support on bar slow pace no LOB during task slow pace hesitant on steps as this is where pt had fall while at work Dynamic Occasional Lifting Capacity Floor Lift: Floor Lift: box (15#)+ 5#= 20# total pain 9/10 HR 133 bpm and 02 99% keeps load close to body difficulty with use of shoulder to place on counter top uses body to hike onto counter Knee Lift: Knee Lift: box (15#)+ 5# = 20# total HR 138 bpm and 02 99% pain 9/10 uses body to hike onto counter Waist Lift: waist Lift: box (15#)+ 10#= 25# total HR 134 bpm and 02 98% pain 9/10 keeps load close to body side step and back no LOB keeps box elevated and co ntrolled Shoulder Lift: shoulder lift: box (15#) total of 15# HR 140 bpm and 02 99% pain 9/10 uses body to hoist up onto box as well as to bring back down Overhead Lift: overhead lift: box (15#) total of 15# HR 148 bpm and 02 98% pain 9/10 uses body to hoist up onto boxes and to bring back down Carrying: box (15#) total of 15# HR 138 bpm and 02 99% pain 9/10 carries from counter to filing cabinet and back 52 feet keeps load close to body no external support needed and no LOB steady pace Comments: pt is able to remain standing for completion of lifting portion of assessment no seated RB needed
== END 2025-08-04 08:56 | disposition home or self-care (01) ==
LOC: OT 06:35
PROVIDERS: PCP Student in an Organized Health Care Education/Training Program; Referring Provider Student in an Organized Health Care Education/Training Program; Visit Provider Student in an Organized Health Care Education/Training Program
DX: M62.838 Other muscle spasm (principal); M50.90 Cervical disc disorder, unspecified, unspecified cervical region; M53.82 Other specified dorsopathies, cervical region; M54.2 Cervicalgia; G89.29 Other chronic pain; M25.511 Pain in right shoulder
CPT/HCPCS: 97750